=== PATIENT | male | born 1975 | race Caucasian/White ===

== ENCOUNTER 2023-05-10 12:35 | Inpatient (IN) | payer OTHER, SELFPAY ==
[2023-05-10 08:01] VITALS: BP 115/72
--- NOTE | 2023-05-10 08:22 | ED.GENMED ---
History of Present Illness
General
Chief Complaint: Abnormal Lab Value
Source: patient
Exam Limitations: none
Time Seen by Provider: 05/10/23 08:04
Nursing documentation reviewed up to this point in time: agreed with
Travel History
Have you had any contact with someone who has COVID-19?: No
Do you have any symptoms of coronavirus? Fever > 100 degrees, chills, cough, shortness of breath, sore throat, loss of taste or smell, muscle aches, or headache?: No
History of Present Illness
History of Present Illness:
pt is a 47 y/o M with h/o elevated bili probably secondary to primary sclerosing cholangitis dx 2021
was amitted here with bili of 8
and d/c with instructions to f/u with hepatology and have ERCP
pt never did those things
he has remained jaundice but says his color is usually worse in the winter
last week, he made decision to f/u with GI here, dr. calvert. had outpatient labs and was told that his bili was 20. pt was instructed to come to the hospital
he admits to drinking alcohol several nights a week
he does not take excessive tylenol
he has not had any pain, rectal bleeding
sometimes his stool is dark, sometimes light. he has h/o UC and is on mesalamine.
Past History
Past History
ED Past Medical History: Other (Ulcerative colitis, jaundice/primary sclerosing cholangitis)
ED Past Surgical History: Other (Rhinoplasty)
Social History
Tobacco: Non-smoker
Alcohol: Daily
Drug: None
Personal: Single
Living: alone
Review of Systems
Review of Systems
Allergies reviewed?: Yes
All Other Systems: Not applicable
Phy Exam
Physical Exam
Physical Exam:
GENERAL: Alert , in no apparent distress
EYE: pupils equal and reactive, SCLERAL ICTERUS
NECK: Supple
ENT: o/p clr, mmm.
CARDIAC: Regular rate and rhythm .loud 3/6 systolic murmur
LUNGS: Clear breath sounds bilaterally, no acute respiratory distress, no wheezes/rales/rhonchi
ABDOMEN: Soft, without focal tenderness, no r/g, no cvat, normal bowel sounds
NEUROLOGICAL: Alert and oriented, no focal neuro deficits
SKIN: Warm and dry, skin intact. SEVERELY ICTERIC
MUSCULOSKELETAL: No edema, well perfused. neg gatito's sign
PSYCH: Normal and appropriate interaction.
Course
Orders/Labs/Results
Orders:
Orders
05/10/23 09:08
Amylase Urgent
Complete Blood Count/With Diff Urgent
Comprehensive Metabolic Panel Urgent
LDH Urgent
Lipase Urgent
PTT Urgent
Prothrombin Time Urgent
Tylenol [Acetaminophen] Urgent
05/10/23 09:25
Abdomen & Abd Doppler US [US Abd W Abd Doppler] Urgent
Comment:
Reason For Exam: PSC, jaundice;
Abnormal Lab Results
05/10/23
09:08
WBC 4.0 L 10^3/uL
(4.8-10.8)
RBC 3.49 L 10^6/uL
(4.70-6.10)
Hgb 10.6 L g/dL
(13.0-18.0)
Hct 31.4 L %
(39.0-52.0)
RDW 16.4 H %
(11.5-14.5)
Plt Count 86 L 10^3/uL
(130-400)
Absolute Lymphs (auto) 0.8 L 10^3/uL
(1.2-3.4)
Lymphocytes % 19.5 L %
(20.5-51.1)
PT 17.9 H Sec
(11.4-14.6)
APTT 39.4 H Sec
(23.4-35.0)
Chloride 108 H mmol/L
(98-107)
Total Bilirubin 17.2 H mg/dl
(0.2-1.3)
AST 324 H U/L
(17-59)
ALT 188 H U/L
(0-50)
Alkaline Phosphatase 816 H U/L
(38-126)
Albumin 3.1 L g/dl
(3.5-5.0)
Acetaminophen < 10 L ug/ml
(10-30)
05/10/23 09:08
05/10/23 09:08
Vital Signs
Initial and Last Documented VS:
Initial Vital Signs
Temp Pulse Resp BP Pulse Ox
97.9 F 78 16 115/72 100
05/10/23 08:01 05/10/23 08:01 05/10/23 08:01 05/10/23 08:01 05/10/23 08:01
Last Documented Vital Signs
Temp Pulse Resp BP Pulse Ox
97.9 F 78 16 115/72 100
05/10/23 08:01 05/10/23 08:01 05/10/23 08:01 05/10/23 08:01 05/10/23 08:01
MDM/Problems Addressed
Differential Diagnosis Includes:
Primary sclerosing cholangitis, biliary obstruction, hepatitis
MDM/Problems Addressed:
47-year-old male with a history of presumed primary sclerosing cholangitis, sounds as if he has been lost to follow-up from 2 years ago when he was hospitalized for jaundice. Is here for elevated bilirubin sent by GI for admission. Patient is
awake and alert, has no complaints, other than his jaundice does not have any concerning exam findings. His bilirubin is 17 today with transaminitis worse than his previous. INR is normal, hemoglobin stable. I spoke with the GI nurse practitioner
who is aware of him and she recommended that he have an ultrasound with Doppler of his abdomen. He also wanted him admitted to the hospital, signed out to the hospitalist
*Critical Care Note
Total Time (30-74mins, 75-104mins- exclusive of procedures): Not Applicable
ED Attending Note
-
Portions of this chart may have been created with voice recognition software.� Occasional wrong word or��sound alike� substitutions may have occurred due to the inherent limitations of voice recognition software.
Discharge Plan
Departure
Patient Disposition: Admit
Date of Disposition: 05/10/23
Time of Disposition: 09:58
Admit to: Med/Surg
Presentation/result/management discussed w/ accepting MD/DO: Hospitalist
Condition: Fair
Covid-19: Not Applicable
Discharge Problem:
Hyperbilirubinemia
Prescriptions:
No Action
fexofenadine 180 mg Tablet
180 mg PO BID
Patient Comments:
05/10/2023, [place] 180 mg (allergy relief).
mesalamine 1.2 gram Tablet,Delayed Release (Dr/Ec)
1.2 g PO BID
MegaRed Advanced 4-in-1 700 mg-600 mg- 900 mg Capsule
1 cap PO DAILY
Patient Comments:
05/10/2023, 4-in-1 support: Heart, Brain, Eyes, Joints.
Metamucil
2 cap PO BID
Referrals:
Deidre Harmon PA-C [Family Provider] -
Interventions
Interventions:
*General Assessment Last Done: 05/10/23 08:01
ED- Fall Risk Assessment Last Done: 05/10/23 09:22
*ED COVID-19 Vaccine History Last Done: 05/10/23 08:01
[2023-05-10 08:57] VITALS: BMI 23.1
[2023-05-10 09:32] LABS: % Basophils 0.3 % (0-2); % Eosinophils 2.5 % (0-6); % Immature Granulocytes 0.3 % (0-0.5); % Lymphocytes 19.5 % (20.5-51.1); % Monocytes 4.8 % (1.7-9.3); % Neutrophils 72.6 % (42.2-75.2); Absolute Eosinophils 0.1 10^3/uL (0-0.7); Absolute Lymphocytes 0.8 10^3/uL (1.2-3.4); Absolute Monocytes 0.2 10^3/uL (0.1-0.6); Absolute Neutrophils 2.9 10^3/uL (1.4-6.5); Hematocrit 31.4 % (39.0-52.0); Hemoglobin 10.6 g/dL (13.0-18.0); Mean Corp Hgb Conc. 33.8 g/dL (33.0-37.0); Mean Corpuscular Hgb 30.4 pg (27.0-31.0); Nucleated Red Blood Cells % 0 % (-); Red Blood Cell Count 3.49 10^6/uL (4.70-6.10); Red Cell Dist. Width 16.4 % (11.5-14.5)
[2023-05-10 09:44] LABS: INR 1.47; PT 17.9 Sec (11.4-14.6)
[2023-05-10 09:45] LABS: APTT 39.4 Sec (23.4-35.0)
[2023-05-10 09:48] LABS: ALT (SGPT) 188 U/L (0-50); AST (SGOT) 324 U/L (17-59); Acetaminophen < 10 ug/ml (10-30); Albumin 3.1 g/dl (3.5-5.0); Alkaline Phosphatase 816 U/L (38-126); Amylase 61 U/L (30-110); Blood Urea Nitrogen 15 mg/dl (9-20); Calcium 8.8 mg/dl (8.4-10.2); Carbon Dioxide 23 mmol/L (22-30); Chloride 108 mmol/L (98-107); Estimated Creatinine Clearance > 125 ml/min; Glucose 80 mg/dl (70-99); LDH 180 U/L (120-246); Lipase 110 U/L (23-300); Potassium 3.9 mmol/L (3.5-5.1); Sodium 137 mmol/L (135-145); Total Bilirubin 17.2 mg/dl (0.2-1.3); Total Protein 7.1 g/dl (6.3-8.2); eGFR > 60.00
[2023-05-10 10:01] LABS: Platelet Count 86 10^3/uL (130-400)
--- NOTE | 2023-05-10 11:02 | CON.GI ---
Addendum entered and electronically signed by Audrey Campos MD 05/10/23 20:10:
I saw and examined the patient.
The PROSPECT MANAGER or PA's note was reviewed and I agree with the note.
Comment: 47-year-old male with history of ulcerative pancolitis, currently on mesalamine 1.2 g twice a day, history of PSC, history of congenital heart disease with pulmonary stenosis, ASD oversewn valvuloplasty seen in the office recently by
Marty, outpatient labs showed elevated total bilirubin and was asked to come to the emergency room. Currently denies any complaints, no abdominal pain, nausea, vomiting, heartburn, trouble swallowing, constipation, diarrhea, blood in the stool or
black stool. No NSAID use. No unintentional weight loss. Denies any itching. Reports history of intermittent jaundice couple of times a year in the last 10 years, never seen adhesive sprayer. History of ulcerative pancolitis, currently on 2.4 g of
mesalamine, no evidence of active inflammation seen on colonoscopy with biopsies in [address] Lopez. History of PSC, biliary strictures noted on prior imaging, did not require any intervention, did not follow-up with hepatology as suggested in
the past. No family history of colon cancer, liver or pancreatic cancers or inflammatory bowel disease. History of active alcohol use several times a week. Daily Tylenol use.
-Jaundice with total bilirubin of 17.2 on admission, alkaline phosphatase of 816, AST of 324 and ALT of 188.
With history of PSC, this could be related to biliary strictures as seen on previous imaging
Agree with MRI of the abdomen with MRCP
Will check alpha-fetoprotein and CA 19�9
Continue to monitor LFTs and INR
Reviewed with patient and father regarding the importance of hepatology evaluation, gave number for Dr. Sethi at [facility], suggested calling his office tomorrow and get soonest appointment and they are willing to go to [facility] as well.
Alcohol abstinence reinforced.
Will need to be checked for vitamin deficiencies, will during this hospital admission.
-Ulcerative colitis seems to be quiescent as per recent colonoscopy in 2021
Continue mesalamine 2.4 g a day
Will follow
Original Note:
Consultation
-
Date/Time Consultation Requested: 05/10/23 0900
Date/Time Consultation Performed: 05/10/23 1100
Requesting Provider: Debora Solis PA-C
Performing Provider: ROBERT Hayden, Audrey Campos MD
Reason for Consultation: increased LFT's
Medical History
Chief Complaint / HPI
Chief Complaint: jaundice/abnormal labs
History of Present Illness:
Pt is a 47 yo with hx congenital heart disease with pulm stenosis with ASD oversew and valuvoplasty at age 7 months, ulcerative colitis since 2009 and primary sclerosing cholangitis and prior biliary stricture. Pt was followed by Dr. Lopez in
2021 then recently was seen by Dr. Ferguson with some loss in follow up since 2021. In reviewing records MRI in 2021 with dominant stricture inferior to cystic duct with cholangiocarcinoma not excluded. It was unclear but pt did not proceed with
advanced testing at that time though per discharge recommended hepatology follow up to consider EUS and ERCP. He has seen Dr. Lopez after admission and recommended labs and follow up but not completed. He had recent follow up in GI office 05/07
and noted with now bili up to 20.4, AST 262, ALT 162, alk phos 758 and sent to ER for evaluation. Hepatitis panel otherwise neg with hep B immunity. He also admits to ETOH use 6-8 drinks per week and Tylenol 2 tablets daily. In review with pt and
ranjit. Pt has had jaundice intermittently for some time and seems to be worse in winter.
He currently admits to regular to loose stools and remains on mesalamine BID. He denies dysphagia, GERD, nausea, vomiting, abdominal pain, itchiness, constipation or blood in stools.
Past Medical History
Past Medical History: Other (ulcerative colitis, Primary sclerosing cholangitis, congenital heart disease with pulm stenosis, hearing loss, RBBB, iron deficiency anemia, hemorrhoids, colon polyps)
Past Surgical History: Cardiac (valvulplasty with ASD at age 7 months) and Other (rhinoplasty, cleft palate repair, liver biopsy 2009 normal )
Social History
Tobacco: Non-Smoker
Alcohol: Occasional (6-8 drinks per week arnold dominguez drinks)
Drug: None
Personal: Other (fianc�e )
Living: With Family
Employment: Employed
Family History
Family History: Other (uncle with colon CA 50's)
Allergies / Home Medications
Allergy/AdvReac Type Severity Reaction Status Date / Time
No Known Drug Allergies Allergy none Verified 05/10/23 08:04
Medication Instructions Recorded
Metamucil 2 cap PO BID Gastrointestinal Issue 05/10/23
fexofenadine 180 mg tablet 180 mg PO BID Allergies 05/10/23
mesalamine 1.2 gram tablet,delayed 1.2 g PO BID Gastrointestinal Issue 05/10/23
release
omega-3 700 mg-dha and epa 600 1 cap PO DAILY Supplement 05/10/23
mg-fish and krill oil 900 mg
capsule (MegaRed Advanced 4-in-1)
Review of Systems
-
History Source: Patient and Other (asher )
Constitutional: Reports Weight Gain (few lbs gain)
EENT: Reports No Symptoms
Respiratory: Reports No Symptoms
Abdomen/GI: Reports Diarrhea (at times )
: Reports No Symptoms
Musculoskeletal: Reports No Symptoms
Skin: Reports No Symptoms
Neurological: Reports No Symptoms
Endocrine: Reports No Symptoms
Hematologic/Lymphatic: Reports No Symptoms
Vital Signs
Temp Pulse Resp BP Pulse Ox
97.9 F 78 16 115/72 100
05/10/23 08:01 05/10/23 08:01 05/10/23 08:01 05/10/23 08:01 05/10/23 08:01
Physical Exam
Exam
General: Other (marked jaundice)
HEENT: Normocephalic, Anicteric and Moist Mucous Membranes
Respiratory: Clear
Cardiac: Regular Rhythm
GI: Soft, Non Tender and Non Distended
Musculoskeletal: No Clubbing and No Cyanosis
Skin: Warm and Dry
Neuro: Awake, Alert and AO x 3
Psych: Calm
Results
WBC 4.0 10^3/uL (4.8-10.8) L 05/10/23 09:08
Hgb 10.6 g/dL (13.0-18.0) L 05/10/23 09:08
Hct 31.4 % (39.0-52.0) L 05/10/23 09:08
MCV 90.0 fL (80.0-94.0) 05/10/23 09:08
Plt Count 86 10^3/uL (130-400) L 05/10/23 09:08
Absolute Neuts (auto) 2.9 10^3/uL (1.4-6.5) 05/10/23 09:08
PT 17.9 Sec (11.4-14.6) H 05/10/23 09:08
INR 1.47 05/10/23 09:08
APTT 39.4 Sec (23.4-35.0) H 05/10/23 09:08
Sodium 137 mmol/L (135-145) 05/10/23 09:08
Potassium 3.9 mmol/L (3.5-5.1) 05/10/23 09:08
Chloride 108 mmol/L (98-107) H 05/10/23 09:08
Carbon Dioxide 23 mmol/L (22-30) 05/10/23 09:08
BUN 15 mg/dl (9-20) 05/10/23 09:08
Creatinine 0.7 mg/dL (0.7-1.3) 05/10/23 09:08
Calcium 8.8 mg/dl (8.4-10.2) 05/10/23 09:08
Total Bilirubin 17.2 mg/dl (0.2-1.3) H 05/10/23 09:08
AST 324 U/L (17-59) H 05/10/23 09:08
ALT 188 U/L (0-50) H 05/10/23 09:08
Alkaline Phosphatase 816 U/L (38-126) H 05/10/23 09:08
Amylase 61 U/L (30-110) 05/10/23 09:08
Lipase 110 U/L (23-300) 05/10/23 09:08
Diagnostic Image Results:
09/13/2021 MR abd with and without with MRCP:
Distention of the gallbladder. Diffuse intrahepatic biliary ductal dilation with beaded appearance on MRCP images, suggesting mild to moderate diffuse intrahepatic duct strictures.
Tapered to severe narrowing of the common bile duct, just inferior to the cystic duct insertion. No MR evidence for an obstructing mass lesion. Findings most likely represent changes from primary sclerosing cholangitis. Differential consideration of
cholangiocarcinoma, felt to be less likely with no focal mass lesion identified.
Heterogeneous T2-weighted signal of the liver, also demonstrating heterogeneity on diffusion-weighted images. Findings most likely represents cirrhosis. There is also splenomegaly.
No evidence for a focal hepatic mass lesion.�
Prior GI Procedures:
EGD:
Colonoscopy: 09/2021 [facility] �� - Hemorrhoids found on perianal exam.
�� � � � � � � � � � � - One 4 mm polyp in the transverse colon, removed with
�� � � � � � � � � � � a cold snare. Resected and retrieved.
�� � � � � � � � � � � - Nodular mucosa from 18 to 20 cm proximal to the
�� � � � � � � � � � � anus. Biopsied. Tattooed.
�� � � � � � � � � � � - The entire examined colon is normal.
�� � � � � � � � � � � - The examined portion of the ileum was normal.
�� � � � � � � � � � � Biopsied.
�� � � � � � � � � � � - Two biopsies were obtained in the rectum, in the
�� � � � � � � � � � � sigmoid colon, in the descending colon, in the
�� � � � � � � � � � � transverse colon, in the ascending colon and in the
�� � � � � � � � � � � cecum.
colonoscopy: 12/2019 [facility] � � - The entire examined colon is normal. Biopsied.
�� � � � � � � � � � � - Colitis was not seen.
Assessment / Plan
-
Pt is a 47 yo with hx congenital heart disease with pulm stenosis with ASD oversew and valvuloplasty at age 7 months, ulcerative colitis since 2010 and primary sclerosing cholangitis and prior biliary stricture. Pt was followed by Dr. Lopez in
2021 then recently was seen by Dr. Ferguson with some loss in follow up since 2021. In reviewing records MRI in 2021 with dominant stricture inferior to cystic duct with cholangiocarcinoma not excluded. also noted changes of cirrhosis It was
unclear but pt did not proceed with advanced testing at that time though per discharge recommended hepatology follow up to consider EUS and ERCP. He has seen Dr. Lopez after admission and recommended labs and follow up but not completed. He had
recent follow up in GI office 05/07 and noted with now bili up to 20.4, AST 262, ALT 162, alk phos 758 and sent to ER for evaluation. Hepatitis panel otherwise neg with hep B immunity. He also admits to ETOH use 6-8 drinks per week and Tylenol 2
tablets daily. In review with pt and ranjit. Pt has had jaundice intermittently for some time and seems to be worse in winter.
- painless jaundice with elevated LFT's with hx elevation in past and prior liver biopsy
-ulcerative colitis
-primary sclerosing cholangitis
-concern for cirrhosis on prior imaging
-ETOH abuse
-daily tylenol use
other medical problems
-iron deficiency anemia
-splenomegaly
-congenital heart disease with surgical valvotomy and ASD oversew at 7 months old
-RBBB
-pulmonic stenosis
PLAN:
Etiology of LFT with concern underlying PSC with stricturing disease, cirrhosis with hx continued ETOH/daily Tylenol use, vs cholangio CA vs other
await US completed in ER
will order MR with MRCP
add AFP and Ca 19-9
cont mesalamine with hx UC
trend LFT's, INR 1.47
consider OP hepatology eval as prior evaluation with concern for small ducts PCS vs overlap syndrome vs. PBC
ETOH abstinence, avoid hepatotoxic medications including Tylenol
updated family at bedside and stressed need for continued GI follow up wit current issue and lapse in care
-
-
Thank you for consultation and allowing me to participate in the patient's care. Please call the crop production advisor GI physician during the after hours with any questions or concerns.
[2023-05-10 11:52] VITALS: BP 110/77
--- NOTE | 2023-05-10 12:24 | HPS.HSE ---
Family Physician
-
Family Physician: Deidre Harmon
Chief Complaint
-
abnormal lab
History of Present Illness
47-year-old male past medical history below who is presenting from gastroenterology office as he was found to have abnormal lab value. Patient states he was told he has a bilirubin of 20 and should come to the hospital. Of note patient was
admitted to hospital September 28 during which time he underwent extensive evaluation and was found to have a primary sclerosing cholangitis. Patient was lost to follow-up in the interim. Patient stated his jaundice is worse in the winter times and
improves during summertime. States it is usually in waves. Does admit to doing 6-8 cocktails/twisted teas/Arnold Lyon drinks in 1 week. Does take approximately 650 mg of Tylenol daily. States of regular to loose stools as he has history of UC.
Denies any significant weight loss. Denies any change in color of urine. Denies any fevers or chills. Denies any nausea or vomiting. States he had tattoo which approximately 15 years old. Denies any history of drug abuse.
Medical History
Past Medical History
Past Medical History: Reports Other
Additional Past Medical History:
primary sclerosing cholangitis�
Ulcerative Coilitis
Congenital heart disease with pulmonary stenosis status post surgery
Past Surgical History: Reports Cardiac and Other
Additional Past Surgical History:
Rhinoplasty
Cleft palate repair
Cardiac surgery
Social History
Tobacco: Non-smoker
Alcohol: Daily
Living: With Family
Employment: Employed
Family History
Family History: Other (Father-Neuropathy )
Allergies / Home Medications
Allergies reflects when Allergies were last updated in [facility].
Home Medications with original date entered in [facility]
Allergy/Medication List:
Allergies
Allergy/AdvReac Type Severity Reaction Status Date / Time
No Known Drug Allergies Allergy none Verified 05/10/23 08:04
Home Medications
Metamucil 2 cap PO BID Gastrointestinal Issue 05/10/23
fexofenadine 180 mg tablet 180 mg PO BID Allergies 05/10/23
mesalamine 1.2 gram tablet,delayed release 1.2 g PO BID Gastrointestinal Issue 05/10/23
omega-3 700 mg-dha and epa 600 mg-fish and krill oil 900 mg capsule ([employer] Advanced 4-in-1) 1 cap PO DAILY Supplement 05/10/23
Review of Systems
-
History Source: Patient and Family
A 12 point ROS was completed and negative except as noted: Yes
Physical Exam
Vital Signs
Vital Signs
Temp Pulse Resp BP Pulse Ox
97.9 F 74 18 110/77 99
05/10/23 08:01 05/10/23 11:52 05/10/23 11:52 05/10/23 11:52 05/10/23 11:52
Physical Exam
General: Well Developed, Well Nourished and No Apparent Distress
HEENT: NormoCephalic, Moist mucous membranes, Atraumatic and Other (Icteric sclerae)
Respiratory: Clear
Cardiac: S1/S2, Regular Rhythm and Murmur; No Rub
GI: Soft, Non Tender, Non Distended and Normal Bowel Sounds; No Organomegaly
Rectal: Deferred by Provider
Musculoskeletal: No Clubbing, No Cyanosis and No Edema
Skin: Warm and Jaundice; No Rash
Neuro: Awake, Oriented, AO x 3, No Motor Deficits and Nonfocal/grossly intact
Psych: Calm
Laboratory Results
-
05/10/23 09:08
05/10/23 09:08
Laboratory Results
PT 17.9 Sec (11.4-14.6) H 05/10/23 09:08
INR 1.47 05/10/23 09:08
APTT 39.4 Sec (23.4-35.0) H 05/10/23 09:08
Total Bilirubin 17.2 mg/dl (0.2-1.3) H 05/10/23 09:08
AST 324 U/L (17-59) H 05/10/23 09:08
ALT 188 U/L (0-50) H 05/10/23 09:08
Alkaline Phosphatase 816 U/L (38-126) H 05/10/23 09:08
Lipase 110 U/L (23-300) 05/10/23 09:08
Impression/Plan
-
#Painless jaundice with transaminitis
#History of liver biopsy
#Primary sclerosing cholangitis
Abdominal ultrasound noted with changes consistent with PSC.
MRI of the abdomen ordered by gastroenterology
As outpatient workup done in the past for hepatitis per gastroenterology correspondence
N.p.o. for now as plan for MRCP
Gentle IV fluids
Avoid Tylenol
Counseled on alcohol cessation
If with confusion check ammonia and may need to start lactulose
#Ulcerative colitis
Continue mesalamine
#Alcohol abuse
MSAS protocol
low likelihood of severe withdrawal
#Pancytopenia likely secondary alcohol abuse leading to suppression versus PSC
Check anemia panel
Trend hemoglobin and transfuse as needed
Platelets adequate no acute need for transfusion
DVT ppx-scds and encourage ambulation
[2023-05-10 12:30] VITALS: BP 117/69
[2023-05-10 13:00] VITALS: BP 111/70
[2023-05-10 14:03] LABS: Iron 68 ug/dl (49-181)
[2023-05-10 14:13] LABS: Percent Saturation 24 % (20-50); Total Iron Binding Capacity 273 ug/dl (261-462)
[2023-05-10 15:18] VITALS: BP 101/63
[2023-05-10] MEDS: LR 1000 IV (16:57)
[2023-05-10] MEDS: ASACOL, DELZICOL DR 1200 MG PO (17:02)
[2023-05-10 17:53] LABS: Folate 18.3 ng/ml (2.76-20); Vitamin B12 > 1000 pg/ml (239-931)
[2023-05-10 19:21] LABS: AFP Male/Tumor Marker 4.84 ng/ml
[2023-05-10] MEDS: METAMUCIL, KONSYL 2 PACKET PO (20:28)
[2023-05-10 23:44] VITALS: BP 106/52
[2023-05-11] MEDS: LR 1000 IV (04:59)
[2023-05-11 06:05] LABS: % Eosinophils 3.2 % (0-6); % Immature Granulocytes 0.3 % (0-0.5); % Lymphocytes 27.1 % (20.5-51.1); % Monocytes 7.4 % (1.7-9.3); Absolute Eosinophils 0.1 10^3/uL (0-0.7); Absolute Lymphocytes 0.9 10^3/uL (1.2-3.4); Absolute Monocytes 0.3 10^3/uL (0.1-0.6); Absolute Neutrophils 2.1 10^3/uL (1.4-6.5); Hematocrit 30.8 % (39.0-52.0); Hemoglobin 10.4 g/dL (13.0-18.0); Mean Corp Hgb Conc. 33.8 g/dL (33.0-37.0); Mean Corpuscular Hgb 30.5 pg (27.0-31.0); Mean Corpuscular Volume 90.3 fL (80.0-94.0); Nucleated Red Blood Cells % 0 % (-); Platelet Count 79 10^3/uL (130-400); Red Blood Cell Count 3.41 10^6/uL (4.70-6.10); Red Cell Dist. Width 16.2 % (11.5-14.5); White Blood Cell Count 3.4 10^3/uL (4.8-10.8)
[2023-05-11 06:29] LABS: ALT (SGPT) 155 U/L (0-50); AST (SGOT) 240 U/L (17-59); Albumin 2.5 g/dl (3.5-5.0); Alkaline Phosphatase 622 U/L (38-126); Blood Urea Nitrogen 14 mg/dl (9-20); Calcium 8.6 mg/dl (8.4-10.2); Carbon Dioxide 23 mmol/L (22-30); Chloride 105 mmol/L (98-107); Estimated Creatinine Clearance > 125 ml/min; Glucose 86 mg/dl (70-99); Potassium 3.6 mmol/L (3.5-5.1); Sodium 139 mmol/L (135-145); Total Bilirubin 13.4 mg/dl (0.2-1.3); Total Protein 5.9 g/dl (6.3-8.2); eGFR > 60.00
[2023-05-11] MEDS: CLARITIN 10 MG PO (07:23)
[2023-05-11] MEDS: ASACOL, DELZICOL DR 1200 MG PO ×2 (07:23→17:19)
[2023-05-11] MEDS: METAMUCIL, KONSYL 2 PACKET PO (07:23)
[2023-05-11 07:39] VITALS: BP 95/60
--- NOTE | 2023-05-11 10:58 | PN.CDI ---
CDI
- -
CDI:
Physician Documentation Request
Admit Date: 05/10/23 12:35
Dear Doctor Kiki,
Please review the following and provide your response in the progress notes.
Clinical Indicators:
The diagnosis of severe portal hypertension was included in the signed 05/10 MRI abdomen
- 05/10 Abdomen MRI 'The right and left portal veins, main portal vein, superior mesenteric vein, and splenic vein are severely distended consistent with severe portal hypertension'
- 'There is distention of the intrahepatic inferior vena cava, right, left, middle hepatic veins'
Please indicate in your progress notes if you are in agreement that the above diagnosis is valid for this patient:
____ - Portal hypertension is a valid diagnosis (Please include it in your progress notes)
____ - Portal hypertension is not a valid diagnosis for this patient
____ - Portal hypertension is not yet confirmed but remains a suspected condition
____ - Other
Use of terms such as suspected, likely, concern for, or probable are acceptable for a diagnosis that is being evaluated, monitored or treated as if it exists and can be coded in the inpatient setting, when documented at the time of discharge.
Thank you,
Greg Goldsmith RN
CDI Specialist
Please use your independent medical judgment in providing your response.
--- NOTE | 2023-05-11 11:28 | W.PN.HOSP.TC ---
Today's Communication/Plan
-
GI recs
dc IVF
Assessment / Plan
Assessment / Plan
#Painless jaundice with transaminitis 2/2 biliary stricture in setting of PSC
#History of liver biopsy
#Primary sclerosing cholangitis
#Portal hypertension
Abdominal ultrasound noted with changes consistent with PSC.
MRI of the abdomen SEVERE PRIMARY SCLEROSING CHOLANGITIS with innumerable short segment strictures throughout the intrahepatic bile ducts which is not definitively changed.
As outpatient workup done in the past for hepatitis per gastroenterology correspondence
Tolerating diet
DC IV fluids
Avoid Tylenol
Counseled on alcohol cessation
If with confusion check ammonia and may need to start lactulose
Pt with information to call Dr. Eubanks/f/u with construction project coordinator at [facility]
AFP at 4.84
CA 19-9 pending
T-bili improving
Unclear if plan to start Ursodiol-will defer to GI
#Ulcerative colitis
MRCP with mild pancolitis. Portal colopathy is an alternative diagnostic possibility given the degree of portal hypertension.
Continue mesalamine
#Alcohol abuse
MSAS protocol
low likelihood of severe withdrawal
#Pancytopenia likely secondary alcohol abuse leading to suppression versus PSC
Check anemia panel-iron stores an b12 and folate wnl.
Trend hemoglobin and transfuse as needed. Hgb at 10.4
Platelets adequate no acute need for transfusion
DVT ppx-scds and encourage ambulation
Dispo-GI recs. Possible home
Anticipated Discharge: Today
Subjective/Interval History
-
Date of Service: May 11, 2023
Denies any abdominal pain nausea vomiting
Tolerating diet
Objective Data
-
Labs:
Laboratory Results
05/11/23
05:35
WBC 3.4 L
Hgb 10.4 L
Hct 30.8 L
Plt Count 79 L
Sodium 139
Potassium 3.6
Chloride 105
Carbon Dioxide 23
BUN 14
Creatinine 0.7
Glucose 86
Calcium 8.6
Total Bilirubin 13.4 H
AST 240 H
ALT 155 H
Alkaline Phosphatase 622 H
Vital Signs:
Vital Signs
Temp Pulse Resp BP Pulse Ox
97.7 F 72 16 95/60 100
05/11/23 07:39 05/11/23 07:39 05/11/23 07:39 05/11/23 07:39 05/11/23 07:39
I&O
05/10/23 05/11/23 05/12/23
06:59 06:59 06:59
Intake Total 480 / 480
Balance 480 / 480
Physical Exam
-
General: Well Developed and No Apparent Distress
HEENT: Normocephalic, Atraumatic, Moist Mucous Membranes and Other (Icteric sclerae)
Respiratory: Clear to Auscultation
Cardiac: Regular Rhythm and S1/S2; Negative Murmur, Rub or Gallop
GI: Soft, Nontender, Nondistended and Normal Bowel Sounds; Negative Organomegaly
Rectal: Deferred by Provider
Musculoskeletal: No Clubbing, No Cyanosis and No Edema
Skin: Warm and Jaundice; Negative Rash
Neuro: Awake, Alert, Oriented, AO x 3, No Motor Deficits and Nonfocal/Grossly Intact
Psych: Calm
[2023-05-11 15:39] VITALS: BP 119/71
--- NOTE | 2023-05-11 16:46 | CM ---
met with patient at bedside.patient lives with his mom in house with no sonia,his bed and bath is on the second level.he ambulated I and is I with his adl's.his pcp is [facility] and he uses [facility] in [place] for meds.patient is
adm with elevated bilirubin.he has a pnacretic mass.m ovf,gi following patient.
Plan is to dischrge home with no needs.
--- NOTE | 2023-05-11 17:14 | W.DCSUMMARY ---
Discharge Summary
Discharge Data
Date of Admission: 05/10/23
Date of Discharge: 05/11/23
-
Pending Results: No
Hospital Course
47-year-old male past medical history of ulcerative colitis, alcohol abuse, pancytopenia, primary sclerosing cholangitis who is presented with abnormal lab value. Patient was seen by barrel maker outpatient was found to have elevated
bilirubin of 20. Patient was told to come into the ER. Patient underwent ultrasound of the abdomen which showed changes consistent with PSC. Patient underwent MRI of the abdomen which showed SEVERE PRIMARY SCLEROSING CHOLANGITIS with innumerable
short segment strictures throughout the intrahepatic bile ducts which is not definitively changed. NO MRI evidence for new biliary obstruction or interval increase in biliary dilatation compared with the prior exam performed 09/13/2021. Mild
hepatic cirrhosis and mild hepatomegaly. SEVERE PORTAL HYPERTENSION with SEVERE SPLENOMEGALY. Moderate right upper quadrant hector hepatis, portacaval, and retroperitoneal lymphadenopathy which has mildly increased since 09/13/2021. Mild pancolitis
which is likely CHRONIC ULCERATIVE COLITIS. Portal colopathy is an alternative diagnostic possibility given the degree of portal hypertension. Minimal ascites which appears new from 09/13/2021. Patient bilirubin trended down with improvement in
transaminitis. Patient was tolerating diet. Patient did not have any complaint of pruritus. Patient was offered to be started on questran and ursodiol which patient refused. Patient was recommended follow-up outpatient with book sorter as soon
as possible. Patient is a oriented appointment with Dr. Eubanks book sorter downtown [facility].
Discharge Plan
-
Patient Disposition: Home (Routine Discharge)
Discharge Diagnosis/Procedures: Painless jaundice 2/2 biliary stricture in setting of Primary sclerosing cholangitis
Condition: Fair
Diet: Low Fat
Activity: With assistance and As tolerated
Driving Restrictions: As prior to admission
Blood Work: cmp in 1 week via primary doctor.
Activity Restrictions/Additional Instructions:
Recommend to follow up with Dr Sethi book sorter at [facility].
Instructions: Alcohol Use Disorder (DC)
Referrals:
Deidre Harmon PA-C [Family Provider] - in less than 1 week
Luis Ferguson MD [Active] - in one to two weeks
Prescriptions:
Continued
mesalamine 1.2 gram Tablet,Delayed Release (Dr/Ec)
1.2 g PO BID
MegaRed Advanced 4-in-1 700 mg-600 mg- 900 mg Capsule
1 cap PO DAILY
Patient Comments:
05/10/2023, 4-in-1 support: Heart, Brain, Eyes, Joints.
Metamucil
2 cap PO BID
Changed
fexofenadine 180 mg Tablet
180 mg PO DAILY Qty: 0 0RF
Patient Comments:
05/10/2023, Mónica Holt 180 mg (allergy relief).
Discharge Orders:
Discharge Patient (As Directed); Ordered 05/11/23
Ordered By: Juliano Swanson
--- NOTE | 2023-05-11 17:21 | W.PN.GI.CBS2 ---
Today's Communication / Plan
-
Ok to DC home and f/u with Dr. Sethi (has appt in August), and Dr. Ferguson
ETOH abstinence
Assessment / Plan
-
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 Pt was followed by Dr. Lopez in
2021 then recently was seen by Dr. Ferguson with some loss in follow up since 2021. In reviewing records MRI in 2021 with dominant stricture inferior to cystic duct with cholangiocarcinoma not excluded. also noted changes of cirrhosis It was
unclear but pt did not proceed with advanced testing at that time though per discharge recommended hepatology follow up to consider EUS and ERCP. He has seen Dr. Lopez after admission and recommended labs and follow up but not completed. He had
recent follow up in GI office 05/07 and noted with now bili up to 20.4, AST 262, ALT 162, alk phos 758 and sent to ER for evaluation. Hepatitis panel otherwise neg with hep B immunity. He also admits to ETOH use 6-8 drinks per week and Tylenol 2
tablets daily. In review with pt and ranjit. Pt has had jaundice intermittently for some time and seems to be worse in winter.
- painless jaundice with elevated LFT's with hx elevation in past and prior liver biopsy
-ulcerative colitis
-primary sclerosing cholangitis
-concern for cirrhosis on prior imaging
-ETOH abuse
-daily tylenol use
other medical problems
-iron deficiency anemia
-splenomegaly
-congenital heart disease with surgical valvotomy and ASD oversew at 7 months old
-RBBB
-pulmonic stenosis
PLAN:1. Painless jaundice secondary to chronic strictures from PSC no evidence of cholangiocarcinoma noted on MRI, CA 19-9 pending. He currently has no pruritus offered to start ursodiol daily and Questran as needed but he wants to hold off for
now as he has no symptoms and wants to await input from Dr. Sethi. No signs of cholangitis currently.
2 has evidence of cirrhosis most likely related to alcohol and PSC. Alpha-fetoprotein level was normal currently has no signs of decompensation other than minimal lower extremity edema and minimal ascites has appointment with Dr. Sethi in August
3 UC in remission continue mesalamine
4 given underlying PSC explained to patient increased risk of colon and cholangiocarcinoma and reinforced importance of compliance with annual colonoscopy and MRIs
Subjective
Subjective
Date of Service: May 11, 2023
He feels good denies any abdominal pain, no pruritus, no fevers or chills. MRI with MRCP results noted no evidence of cholangiocarcinoma he has multiple chronic strictures from PSC but also has evidence of hepatosplenomegaly and underlying
cirrhosis with minimal ascites.
Objective
Data Reviewed
Laboratory Data:
Laboratory Results
05/11/23 05:35
05/11/23 05:35
Laboratory Results
PT 17.9 Sec (11.4-14.6) H 05/10/23 09:08
INR 1.47 05/10/23 09:08
APTT 39.4 Sec (23.4-35.0) H 05/10/23 09:08
Total Bilirubin 13.4 mg/dl (0.2-1.3) H 05/11/23 05:35
AST 240 U/L (17-59) H 05/11/23 05:35
ALT 155 U/L (0-50) H 05/11/23 05:35
Alkaline Phosphatase 622 U/L (38-126) H 05/11/23 05:35
Amylase 61 U/L (30-110) 05/10/23 09:08
Lipase 110 U/L (23-300) 05/10/23 09:08
Vital Signs and I&O:
Vital Signs
Temp Pulse Resp BP Pulse Ox
97.7 F 74 17 119/71 99
05/11/23 15:39 05/11/23 15:39 05/11/23 15:39 05/11/23 15:39 05/11/23 15:39
I&O
05/10/23 05/11/23 05/12/23
06:59 06:59 06:59
Intake Total 480 / 480
Balance 480 / 480
Physical Exam
Physical Exam
Cardiology: Normal Sinus Rhythm
Pulmonary: Clear
GI: Soft, Distended (mildly distended), Non Tender and Normal Bowel Sounds
[2023-05-13 04:12] LABS: CA 19-9 4 U/mL (<=35)
== END 2023-05-11 20:48 | disposition home or self-care (01) | DRG 444 ==
LOC: 3 WEST ACU 12:35
PROVIDERS: Physician Assistant; ADMITTING PHYSICIAN Hospitalist; EMERGENCY PHYSICIAN Emergency Medicine; FAMILY PHYSICIAN Physician Assistant Medical; OTHER PHYSICIAN Internal Medicine Gastroenterology
DX: K83.01 Primary sclerosing cholangitis (principal); K83.1 Obstruction of bile duct; K76.6 Portal hypertension; K51.00 Ulcerative (chronic) pancolitis without complications; D61.818 Other pancytopenia; R59.0 Localized enlarged lymph nodes; D50.9 Iron deficiency anemia, unspecified; I45.10 Unspecified right bundle-branch block; H91.90 Unspecified hearing loss, unspecified ear; K64.9 Unspecified hemorrhoids; F10.10 Alcohol abuse, uncomplicated; R16.2 Hepatomegaly with splenomegaly, not elsewhere classified; K74.60 Unspecified cirrhosis of liver; Z86.010 Personal history of colon polyps; Z87.74 Personal history of (corrected) congenital malformations of heart and circulatory system; Z80.0 Family history of malignant neoplasm of digestive organs
CPT/HCPCS: 74183; 76700; 80053; 80143; 82105; 82150; 82607; 82728; 82746; 83540; 83550; 83615; 83690; 85025; 85610; 85730; 86301; 93975; 99285

== ENCOUNTER 2023-06-19 12:16 | Inpatient (IN) | payer OTHER, SELFPAY ==
[2023-06-19] VITALS (9 sets, daily range): BP systolic 96–134; BP diastolic 37–77; BMI 24.8; BMI 23.6
--- NOTE | 2023-06-19 09:05 | ED.GENMED ---
History of Present Illness
General
Chief Complaint: Abnormal Lab Value
Source: patient
Exam Limitations: none
Time Seen by Provider: 06/19/23 08:53
Travel History
Have you had any contact with someone who has COVID-19?: No
Do you have any symptoms of coronavirus? Fever > 100 degrees, chills, cough, shortness of breath, sore throat, loss of taste or smell, muscle aches, or headache?: No
History of Present Illness
History of Present Illness:
See MDM
Past History
Past History
ED Past Medical History: Other (Ulcerative colitis, jaundice/primary sclerosing cholangitis)
ED Past Surgical History: Other (Rhinoplasty)
Social History
Tobacco: Non-smoker
Alcohol: Daily
Drug: None
Personal: Single
Living: alone
Phy Exam
Physical Exam
Physical Exam:
See MDM
Course
Orders/Labs/Results
Orders:
Orders
06/19/23 08:52
IV Insert/Care/Rem.- Treatment PRN
06/19/23 09:08
Complete Blood Count/With Diff Urgent
Comprehensive Metabolic Panel Urgent
Lipase Urgent
NT-proBNP Urgent
06/19/23 09:09
Prothrombin Time Urgent
06/19/23 09:46
Electrocardiogram (*1) Urgent
Reason for Study: Chest Pain
EKG- Treatment ONCE
Abnormal Lab Results
06/19/23 06/19/23
09:08 09:09
RBC 3.47 L 10^6/uL
(4.70-6.10)
Hgb 10.5 L g/dL
(13.0-18.0)
Hct 31.4 L %
(39.0-52.0)
RDW 18.1 H %
(11.5-14.5)
Plt Count 83 L 10^3/uL
(130-400)
Abs Immat Gran (auto) 0.1 H 10^3/uL
(0-0.05)
Absolute Lymphs (auto) 0.8 L 10^3/uL
(1.2-3.4)
Immature Gran % 0.9 H %
(0-0.5)
Neutrophils % 80.2 H %
(42.2-75.2)
Lymphocytes % 11.8 L %
(20.5-51.1)
PT 18.4 H Sec
(11.4-14.6)
Chloride 109 H mmol/L
(98-107)
BUN 24 H mg/dl
(9-20)
Total Bilirubin 28.6 H* mg/dl
(0.2-1.3)
AST 270 H U/L
(17-59)
ALT 181 H U/L
(0-50)
Alkaline Phosphatase 786 H U/L
(38-126)
Albumin 2.6 L g/dl
(3.5-5.0)
06/19/23 09:08
06/19/23 09:08
Vital Signs
Initial and Last Documented VS:
Initial Vital Signs
Temp Pulse Resp BP Pulse Ox
97.7 F 82 20 125/77 100
06/19/23 08:14 06/19/23 08:14 06/19/23 08:14 06/19/23 08:14 06/19/23 08:14
Last Documented Vital Signs
Temp Pulse Resp BP Pulse Ox
97.7 F 72 22 109/64 100
06/19/23 08:14 06/19/23 10:00 06/19/23 10:00 06/19/23 10:00 06/19/23 10:00
MDM/Problems Addressed
Differential Diagnosis Includes:
HPI and MDM Narrative:
47-year-old male presenting to the emergency department with increasing bilirubin. Patient was recently admitted last month for similar issues. He was seen by GI and it was believed that his symptoms were related to primary sclerosing cholangitis.
At that time, he did have an MRCP. The plan is outpatient follow-up Aakash to see the senior procurement specialist. This has not happened yet. Patient now noticing worsening swelling in both of his legs. His primary care doctor wants to get a
echocardiogram. I did discuss with patient this could be related to ascites and liver failure. Patient has noted abdominal bloating. I discussed with patient this is likely fluid
Will repeat blood work and discussed case with GI
Physical exam
General: Well appearing and non-toxic
HEENT: protecting airway
Neck: appears supple
CV: No evidence of cyanosis
Resp: No accessory muscle use
Abd: Distended and nontender
Extremities: +2 pitting edema bilateral lower extremities
Neuro: alert
Psych: Normal affect
Skin: Significant jaundice throughout
Problems Addressed including Acute and Chronic Conditions affecting care:
1. Acute liver failure
Acuity: acute
Prognosis: unstable
Details: Patient stopped drinking alcohol over a month ago. This is likely in the setting of worsening primary sclerosing chondritis. Will repeat blood work and discussed case with GI
2. Leg edema
Acuity: acute
Prognosis: unstable
Details: Likely in the setting of liver failure but will obtain BNP
Updates
BNP 247. Leg edema likely related to ascites. Albumin low at 2.6
GI made aware
Differential Diagnosis (but not limited to): Liver failure, congestive heart failure
Testing considered: Repeat MRCP
Drug therapy (if applicable): OTC meds, please see d/c instruction regarding Rx drugs
Amount and/or Complexity of Data Reviewed
Clinical info obtained from: Patient
External data reviewed: recent admission for primary sclerosing cholangitis. No stents were performed
Labs I independently reviewed (but not limited to): Total bilirubin 28.6
Radiology: N/A
Pulse Ox: not hypoxic
EKG independently reviewed: Sinus rhythm, left axis, no STEMI
Ammonium Sulfate Operator: N/A
Critical Care: N/A
Risk of Complication:
Social Determinants of health: Good social support
Discussed with other providers: GI, hospitalist
Escalation of Care includes Admit/Obs: Given the rising bilirubin with new leg edema, will admit
Occasional wrong word or 'sound a like' substitutions may have occurred due to the inherent limitations of voice recognition software. Read the chart carefully and recognize, using context, where substitutions have occurred.
*Critical Care Note
Total Time (30-74mins, 75-104mins- exclusive of procedures): Not Applicable
ED Attending Note
-
Portions of this chart may have been created with voice recognition software.� Occasional wrong word or��sound alike� substitutions may have occurred due to the inherent limitations of voice recognition software.
Discharge Plan
Departure
Patient Disposition: Admit
Date of Disposition: 06/19/23
Time of Disposition: 10:20
Admit to: Med/Surg
Presentation/result/management discussed w/ accepting MD/DO: Hospitalist
Discharge Problem:
PSC (primary sclerosing cholangitis), Leg edema
Prescriptions:
No Action
mesalamine 1.2 gram Tablet,Delayed Release (Dr/Ec)
1.2 g PO BID
MegaRed Advanced 4-in-1 700 mg-600 mg- 900 mg Capsule
1 cap PO DAILY
Patient Comments:
06/19/2023, 4-in-1 support: Heart, Brain, Eyes, Joints.
Metamucil
2 cap PO BID
fexofenadine 180 mg Tablet
180 mg PO DAILY Qty: 0 0RF
Patient Comments:
06/19/2023, Mónica Holt 180 mg (allergy relief).
Referrals:
Deidre Harmon PA-C [Family Provider] -
Interventions
Interventions:
*Risk Screen - Suicide Last Done: 06/19/23 08:14
*General Assessment Last Done: 06/19/23 08:14
*Neglect/Abuse Screening Last Done: 06/19/23 08:14
ED- Fall Risk Assessment Last Done: 06/19/23 09:11
*ED COVID-19 Vaccine History Last Done: 06/19/23 09:10
--- NOTE | 2023-06-19 09:08 | EDRN ---
Dr. Graff in room w/ pt at this time.
[2023-06-19 09:28] LABS: % Basophils 0.1 % (0-2); % Eosinophils 1.2 % (0-6); % Immature Granulocytes 0.9 % (0-0.5); % Lymphocytes 11.8 % (20.5-51.1); % Monocytes 5.8 % (1.7-9.3); % Neutrophils 80.2 % (42.2-75.2); Absolute Eosinophils 0.1 10^3/uL (0-0.7); Absolute Immature Granulocytes 0.1 10^3/uL (0-0.05); Absolute Lymphocytes 0.8 10^3/uL (1.2-3.4); Absolute Monocytes 0.4 10^3/uL (0.1-0.6); Absolute Neutrophils 5.5 10^3/uL (1.4-6.5); Hematocrit 31.4 % (39.0-52.0); Hemoglobin 10.5 g/dL (13.0-18.0); Mean Corp Hgb Conc. 33.4 g/dL (33.0-37.0); Mean Corpuscular Hgb 30.3 pg (27.0-31.0); Mean Corpuscular Volume 90.5 fL (80.0-94.0); Nucleated Red Blood Cells % 0 % (-); Platelet Count 83 10^3/uL (130-400); Red Blood Cell Count 3.47 10^6/uL (4.70-6.10); Red Cell Dist. Width 18.1 % (11.5-14.5); White Blood Cell Count 6.8 10^3/uL (4.8-10.8)
[2023-06-19 09:36] LABS: INR 1.55; PT 18.4 Sec (11.4-14.6)
[2023-06-19 09:54] LABS: ALT (SGPT) 181 U/L (0-50); AST (SGOT) 270 U/L (17-59); Albumin 2.6 g/dl (3.5-5.0); Alkaline Phosphatase 786 U/L (38-126); Blood Urea Nitrogen 24 mg/dl (9-20); Calcium 8.7 mg/dl (8.4-10.2); Carbon Dioxide 24 mmol/L (22-30); Chloride 109 mmol/L (98-107); Estimated Creatinine Clearance 64 ml/min; Glucose 94 mg/dl (70-99); Lipase 118 U/L (23-300); NT-proBNP 247 pg/ml; Potassium 3.7 mmol/L (3.5-5.1); Sodium 138 mmol/L (135-145); Total Protein 6.6 g/dl (6.3-8.2); eGFR > 60.00
[2023-06-19 10:09] LABS: Total Bilirubin 28.6 mg/dl (0.2-1.3)
--- NOTE | 2023-06-19 10:30 | EDRN ---
Dr. Graff in room w/pt at this time.
--- NOTE | 2023-06-19 10:33 | EDRN ---
Pt asked to eat and Dr. Graff said pt can eat. Pt was given a boxed lunch at this time. Pt is awaiting hospitalist and admission orders.
--- NOTE | 2023-06-19 12:01 | HPS.HSE ---
Family Physician
-
Family Physician: Deidre Harmon
Chief Complaint
-
abnormal labs
History of Present Illness
47-year-old male past medical history of as below who is presenting from primary doctor's office with abnormal labs and lower extremity swelling. Patient states lower extremity swelling which is ongoing. States is intermittent in nature. Denies
asymmetric swelling. Denies leg pain. Denies any abdominal distention. Denies any chest pain or shortness of breath. States he was recently seen by gastroenterology as outpatient. Denies any fevers or chills at home. Did not notice any further
change in color of stool or urine.
Medical History
Past Medical History
Past Medical History: Reports Other
Additional Past Medical History:
Primary sclerosing cholangitis�
Ulcerative Coilitis
Congenital heart disease with pulmonary stenosis status post surgery
Past Surgical History: Reports Other
Additional Past Surgical History:
Rhinoplasty
Cleft palate repair
Cardiac surgery
Social History
Tobacco: Non-smoker
Alcohol: Former
Family History
Family History: Not pertinent
Allergies / Home Medications
Allergies reflects when Allergies were last updated in [employer].
Home Medications with original date entered in [employer]
Allergy/Medication List:
Allergies
Allergy/AdvReac Type Severity Reaction Status Date / Time
No Known Drug Allergies Allergy none Verified 06/19/23 08:14
Home Medications
Metamucil 2 cap PO BID Gastrointestinal Issue 05/10/23
mesalamine 1.2 gram tablet,delayed release 1.2 g PO BID Gastrointestinal Issue 05/10/23
omega-3 700 mg-dha and epa 600 mg-fish and krill oil 900 mg capsule (Zipwhip Advanced 4-in-1) 1 cap PO DAILY Supplement 05/10/23
fexofenadine 180 mg tablet 180 mg PO DAILY Allergies #0 tabs 05/11/23
Review of Systems
-
History Source: Patient
A 12 point ROS was completed and negative except as noted: Yes
Physical Exam
Vital Signs
Vital Signs
Temp Pulse Resp BP Pulse Ox
97.7 F 74 18 107/65 100
06/19/23 08:14 06/19/23 11:15 06/19/23 11:15 06/19/23 11:11 06/19/23 11:15
Physical Exam
General: Well Developed, Well Nourished and No Apparent Distress
HEENT: NormoCephalic, Moist mucous membranes, Atraumatic and Other (Icteric sclerae)
Respiratory: Clear
Cardiac: S1/S2, Regular Rhythm and Murmur; No Rub
GI: Soft, Non Tender and Normal Bowel Sounds; No Organomegaly
Rectal: Deferred by Provider
Musculoskeletal: No Clubbing, No Cyanosis, Edema, Left Lower Extremity and Edema, Right Lower Extremity
Skin: Warm and Jaundice; No Rash
Neuro: Awake, Oriented, AO x 3, No Motor Deficits and Nonfocal/grossly intact
Psych: Calm
Laboratory Results
-
06/19/23 09:08
06/19/23 09:08
Laboratory Results
PT 18.4 Sec (11.4-14.6) H 06/19/23 09:09
INR 1.55 06/19/23 09:09
Total Bilirubin 28.6 mg/dl (0.2-1.3) H* 06/19/23 09:08
AST 270 U/L (17-59) H 06/19/23 09:08
ALT 181 U/L (0-50) H 06/19/23 09:08
Alkaline Phosphatase 786 U/L (38-126) H 06/19/23 09:08
Lipase 118 U/L (23-300) 06/19/23 09:08
Data Reviewed
-
Lab Data: Labs Reviewed by me, Discussed with Patient and Discussed with Family
Impression/Plan
-
#Painless jaundice with elevated bilirubin, alk phos and ALT/AST likely 2/2 PSC vs. hx of alcohol abuse
#Primary sclerosing cholangitis with worsening of bilirubin 2/2 strictures
#History of liver biopsy
Check abdominal ultrasound to assess for ascites
Will defer MRI of the abdomen by gastroenterology
May require EUS/ERCP
Tolerated diet
Check direct bili and GGT
Avoid Tylenol
AFP was checked recently wnl.
May need to start Ursodiol
If with confusion check ammonia and may need to start lactulose
In setting of swelling-hold IVF. Tolerating po diet.
GI consultation requested
#LE edema likely 2/2 ?liver cirrhosis vs. low likelihood of CHF new onset.
probnp noted
Check LE doppler
Check abdominal ultrasound to assess for ascites
ChecK ECHO
#Ulcerative colitis
Continue mesalamine
#Alcohol abuse
MSAS protocol
low likelihood of severe withdrawal
#Pancytopenia likely secondary alcohol abuse leading to suppression versus PSC
Trend hemoglobin and transfuse as needed
Platelets adequate no acute need for transfusion
#Hx of congenital Heart disease with pulmonary stenosis wtih ASD s/p repair
DVT ppx-scds and encourage ambulation
I spent a total of 78 minutes with the patient or on the floor. More than 50% of this time involved counseling and coordination of care.
--- NOTE | 2023-06-19 12:34 | CON.GI ---
Addendum entered and electronically signed by Tran Cano DO 06/19/23 15:20:
Patient seen and examined independently of ROBERT. I agree with her note with my additions below
Jacob is a 47-year-old male with congenital heart disease with pulmonary stenosis and ASD treated at 7 months, chronic torres ulcerative colitis in clinical remission on chronic 2 mesalamine pills daily, diagnosed with primary sclerosing cholangitis
around age 19 according to his mother who is at the bedside who was sent for outpatient labs showing a bilirubin of 28, GGT 116, ALT 181, AST 270, alkaline phosphatase 76, albumin 2.6, creatinine 1.3. He has no abdominal pain. His weight has been
stable at 140. He denies any GI bleeding, steatorrhea. He has never had any GI bleeding other than small amounts of bright red blood per rectum. He was unaware of having significant liver disease. According to his girlfriend and mother he has
had intermittent jaundice over the past couple of years but over the past few months it has become persistent and significant. He is otherwise asymptomatic.
Patient has never been under the care of a finishing supervisor plastic sheets but has been followed by Dr. Lopez for over 2 decades for his ulcerative colitis. He is not getting annual colonoscopies with his last colonoscopy in 2021. He is unaware of having cirrhosis.
Not heavy drinker, just social. Does not take any high doses of Tylenol or NSAIDs. The only medications he takes is Marlen, mesalamine. Denies any herbal supplements. Uncle with colon cancer otherwise no family history of malignancy and no liver
disease.
# Painless jaundice -according to his mother known diagnosis of PSC at age 19. Not under the care of hepatology.
--Based on imaging and labs highly concerning for cirrhosis with significant portal hypertension and varicosities on imaging.
--MELD 3.0 29 on 06/19/2023
--Currently discussions with Dr. Sethi to see if we can get him in on this Sunday instead of waiting until August. Had a long discussion over 30 minutes with the patient, his mother and girlfriend about the severity of his disease. He understands that
he has significant liver disease and will likely need a transplant. We talked about being compliant with labs, appointments in order to successfully go through transplant evaluation. They reiterated the plan and understand the severity.
-- Patient does have insurance and a good social situation with support from his girlfriend and mother
Original Note:
Consultation
-
Date/Time Consultation Requested: 06/19/23 1030
Date/Time Consultation Performed: 06/19/23 1230
Requesting Provider: Jeff Graff DO
Performing Provider: ROBERT Hayden, Tran Cano DO
Reason for Consultation: increase bilirubin
Medical History
Chief Complaint / HPI
Chief Complaint: jaundice/ LE swelling
History of Present Illness:
Pt is a 47 yo with hx congenital heart disease with pulm stenosis with ASD oversew and valvoplasty at age 7 months, ulcerative colitis since 2009 on chronic Mesalamine 1.2 gram BID, primary sclerosing cholangitis and prior biliary stricture.
Pt was followed by Dr. Lopez in 2021 then recently was seen by Dr. Ferguson since April with some loss in follow up since 2021. In reviewing records MRI in 2021 with dominant stricture inferior to cystic duct with cholangiocarcinoma not excluded.
Pt was due for follow up labs but did not complete after seen by Dr. Lopez. Labs on 05/07 and noted bili up to 20.4, AST 262, ALT 162, alk phos 758 and sent to ER for evaluation. Hepatitis panel otherwise neg with hep B immunity. Pt did also admit
to ETOH use 6-8 drinks per week and Tylenol 2 tablets daily but has since stopped all ETOH since last admission. Pt has had jaundice intermittently for some time and seems to be worse in winter now constant last few months. During admission In
April he completed MRI with noted severe PSC with innumerable short segment strictures throughout intrahepatic bile ducts without change. No new biliary obstruction or increased dilation. Also noted hepatic cirrhosis with mild hepatomegaly,
sever portal HTN and severe splenomegaly with increased hector hepatis, portacaval, retroperitoneal adenopathy. Also noted pancolitis with chronic UC portal colonopathy with degree of portal HTN and minimal ascites. He was recommended follow up labs
and Dr. Sethi which is scheduled in August. Pt was given several reminder calls for labs but did not completed til 06/09 with noted bili 29.3, AST 224, ALT 164, alk phos 736, creat 1.29, albumin 3.0 and INR 1.2. Pt was directed to return to ER.
He currently admits to constipation and regular stools and remains on mesalamine BID. Occasional GERD with PRN tums. He denies dysphagia, nausea, vomiting, abdominal pain,or blood in stools.
Past Medical History
Past Medical History: Other (ulcerative colitis, Primary sclerosing cholangitis, congenital heart disease with pulm stenosis, hearing loss, RBBB, iron deficiency anemia, hemorrhoids, colon polyps)
Past Surgical History: Cardiac (valvulplasty with ASD at age 7 months) and Other (rhinoplasty, cleft palate repair, liver biopsy 2009 normal )
Social History
Tobacco: Non-Smoker
Alcohol: Occasional (6-8 drinks per week [employer] drinks in April now stopped since evaluation)
Drug: None
Personal: Other (fianc�e )
Living: With Family
Employment: Employed
Family History
Family History: Other (uncle with colon CA 50's no family hx liver problems)
Allergies / Home Medications
Allergy/AdvReac Type Severity Reaction Status Date / Time
No Known Drug Allergies Allergy none Verified 06/19/23 08:14
Medication Instructions Recorded
Metamucil 2 cap PO BID Gastrointestinal Issue 05/10/23
mesalamine 1.2 gram tablet,delayed 1.2 g PO BID Gastrointestinal Issue 05/10/23
release
omega-3 700 mg-dha and epa 600 1 cap PO DAILY Supplement 05/10/23
mg-fish and krill oil 900 mg
capsule (MegaRed Advanced 4-in-1)
fexofenadine 180 mg tablet 180 mg PO DAILY Allergies #0 tabs 05/11/23
Review of Systems
-
History Source: Patient and Other (asher )
Constitutional: Reports Weight Gain (10 kg since 2021 no change since 04/2023 )
EENT: Reports No Symptoms
Respiratory: Reports No Symptoms
Abdomen/GI: Reports Constipated
: Reports Dark Urine (at times )
Musculoskeletal: Reports No Symptoms
Skin: Reports No Symptoms
Neurological: Reports No Symptoms
Endocrine: Reports No Symptoms
Hematologic/Lymphatic: Reports No Symptoms
Vital Signs
Temp Pulse Resp BP Pulse Ox
97.7 F 74 23 100/37 100
06/19/23 08:14 06/19/23 12:15 06/19/23 12:15 06/19/23 12:00 06/19/23 12:15
Physical Exam
Exam
General: Other (marked jaundice)
HEENT: Normocephalic, Anicteric and Moist Mucous Membranes
Respiratory: Clear
Cardiac: Regular Rhythm and Peripheral Edema
GI: Soft, Non Tender and Non Distended
Musculoskeletal: No Clubbing and No Cyanosis
Skin: Warm and Dry
Neuro: Awake, Alert and AO x 3
Psych: Calm
Results
WBC 6.8 10^3/uL (4.8-10.8) 06/19/23 09:08
Hgb 10.5 g/dL (13.0-18.0) L 06/19/23 09:08
Hct 31.4 % (39.0-52.0) L 06/19/23 09:08
MCV 90.5 fL (80.0-94.0) 06/19/23 09:08
Plt Count 83 10^3/uL (130-400) L 06/19/23 09:08
Absolute Neuts (auto) 5.5 10^3/uL (1.4-6.5) 06/19/23 09:08
PT 18.4 Sec (11.4-14.6) H 06/19/23 09:09
INR 1.55 06/19/23 09:09
Sodium 138 mmol/L (135-145) 06/19/23 09:08
Potassium 3.7 mmol/L (3.5-5.1) 06/19/23 09:08
Chloride 109 mmol/L (98-107) H 06/19/23 09:08
Carbon Dioxide 24 mmol/L (22-30) 06/19/23 09:08
BUN 24 mg/dl (9-20) H 06/19/23 09:08
Creatinine 1.3 mg/dL (0.7-1.3) 06/19/23 09:08
Calcium 8.7 mg/dl (8.4-10.2) 06/19/23 09:08
Total Bilirubin 28.6 mg/dl (0.2-1.3) H* 06/19/23 09:08
AST 270 U/L (17-59) H 06/19/23 09:08
ALT 181 U/L (0-50) H 06/19/23 09:08
Alkaline Phosphatase 786 U/L (38-126) H 06/19/23 09:08
Lipase 118 U/L (23-300) 06/19/23 09:08
Diagnostic Image Results:
05/10/23 �MR Abdomen W/o & W Contrast
1. � SEVERE PRIMARY SCLEROSING CHOLANGITIS with innumerable short segment strictures throughout the intrahepatic bile ducts which is not definitively changed.
2. � No MRI evidence for new biliary obstruction or interval increase in biliary dilatation compared with the prior exam performed 09/13/2021.
3. � Mild hepatic cirrhosis and mild hepatomegaly.
4. � SEVERE PORTAL HYPERTENSION with SEVERE SPLENOMEGALY.
5. � Moderate right upper quadrant hector hepatis, portacaval, and retroperitoneal lymphadenopathy which has mildly increased since 09/13/2021.
6. � Mild pancolitis which is likely CHRONIC ULCERATIVE COLITIS. Portal colopathy is an alternative diagnostic possibility given the degree of portal hypertension.
7. � Minimal ascites which appears new from 09/13/2021.
09/13/2021 MR abd with and without with MRCP:
Distention of the gallbladder. Diffuse intrahepatic biliary ductal dilation with beaded appearance on MRCP images, suggesting mild to moderate diffuse intrahepatic duct strictures.
Tapered to severe narrowing of the common bile duct, just inferior to the cystic duct insertion. No MR evidence for an obstructing mass lesion. Findings most likely represent changes from primary sclerosing cholangitis. Differential consideration of
cholangiocarcinoma, felt to be less likely with no focal mass lesion identified.
Heterogeneous T2-weighted signal of the liver, also demonstrating heterogeneity on diffusion-weighted images. Findings most likely represents cirrhosis. There is also splenomegaly.
No evidence for a focal hepatic mass lesion.�
Prior GI Procedures:�
EGD:�none
Colonoscopy:� 09/2021 [facility] �� - Hemorrhoids found on perianal exam.
�� � � � � � � � � � � - One 4 mm polyp in the transverse colon, removed with
�� � � � � � � � � � � a cold snare. Resected and retrieved.
�� � � � � � � � � � � - Nodular mucosa from 18 to 20 cm proximal to the
�� � � � � � � � � � � anus. Biopsied. Tattooed.
�� � � � � � � � � � � - The entire examined colon is normal.
�� � � � � � � � � � � - The examined portion of the ileum was normal.
�� � � � � � � � � � � Biopsied.
�� � � � � � � � � � � - Two biopsies were obtained in the rectum, in the
�� � � � � � � � � � � sigmoid colon, in the descending colon, in the
�� � � � � � � � � � � transverse colon, in the ascending colon and in the
�� � � � � � � � � � � cecum.
bx quiescent colitis
colonoscopy: 12/2019 [facility] � � - The entire examined colon is normal. Biopsied.
�� � � � � � � � � � � - Colitis was not seen. bx neg
liver biopsy 2008 no pathologic alternation, iron stain neg for hepatocellular iron deposition, tricrome stain confirms no fibrosis or cirrhosis
Assessment / Plan
-
Pt is a 47 yo with hx congenital heart disease with pulm stenosis with ASD oversew and valvoplasty at age 7 months, ulcerative colitis since 2009 on chronic Mesalamine 1.2 gram BID, primary sclerosing cholangitis and prior biliary stricture.
Pt was followed by Dr. Lopez in 2021 then recently was seen by Dr. Ferguson since April with some loss in follow up since 2021. In reviewing records MRI in 2021 with dominant stricture inferior to cystic duct with cholangiocarcinoma not excluded.
Pt was due for follow up labs but did not complete after seen by Dr. Lopez. Labs on 05/07/23 and noted bili up to 20.4, AST 262, ALT 162, alk phos 758 and sent to ER for evaluation. Hepatitis panel otherwise neg with hep B immunity. Pt did also
admit to ETOH use 6-8 drinks per week and Tylenol 2 tablets daily but has since stopped all ETOH since last admission. Pt has had jaundice intermittently for some time and seems to be worse in winter now constant last few months. During
admission In April he completed MRI with noted severe PSC with innumerable short segment strictures throughout intrahepatic bile ducts without change. No new biliary obstruction or increased dilation. Also noted hepatic cirrhosis with mild
hepatomegaly, sever portal HTN and severe splenomegaly with increased hector hepatis, portacaval, retroperitoneal adenopathy. Also noted pancolitis with chronic UC portal colonopathy with degree of portal HTN and minimal ascites. He was recommended
follow up lab and Dr. Sethi which is scheduled in August. Pt was given several reminder calls for labs but did not completed til 06/09 with noted bili 29.3, AST 224, ALT 164, alk phos 736, creat 1.29, albumin 3.0 and INR 1.2. Pt was directed to
return to ER.
�
- painless jaundice with continued rise in LFT's
-ulcerative colitis
-primary sclerosing cholangitis with innumerable short segment strictures
-concern for cirrhosis with decompensation
-LE edema
-ETOH abuse last 04/2023
-coagulopathy
-thrombocytopenia
other medical problems
-iron deficiency anemia
-splenomegaly
-congenital heart disease with surgical valvotomy and ASD oversew at 7 months old
-RBBB
-pulmonic stenosis
PLAN:
Etiology of LFT with concern underlying PSC with stricturing disease, cirrhosis with hx ETOH use vs other
await repeat US completed in ER
MRI reviewed from April admission with concern for stricturing disease
05/10/23 AFP 4.84 and Ca 19-9 -4
cont mesalamine with hx UC
trend LFT's, INR 1.55
Pt will need hepatology Evaluation as prior� evaluation with� concern for small ducts PCS vs overlap syndrome vs. PBC
ETOH abstinence, avoid hepatotoxic medications including Tylenol which pt has taken in past
eventual EGD for variceal screening
Current MELD 29 -- will review with Dr. Cano for plan
updated family at bedside
-
-
Thank you for consultation and allowing me to participate in the patient's care. Please call the regional manager GI physician during the after hours with any questions or concerns.
[2023-06-19 13:00] LABS: Direct Bilirubin 26.6 mg/dl (0.0-0.4)
[2023-06-19 13:03] LABS: GGTP 116 U/L (15-73)
--- NOTE | 2023-06-19 13:28 | EDRN ---
Pt will return from US to room #18. This RN gave paperwork and report on pt to Hilario GARCIA who is taking care of ER admission hold pts.
[2023-06-19 19:00] LABS: CEA 0.66 ng/ml
[2023-06-19] MEDS: ASACOL, DELZICOL DR 1200 MG PO (21:03)
[2023-06-20 05:33] VITALS: BMI 23.4
[2023-06-20 06:49] LABS: INR 1.49; PT 17.9 Sec (11.4-14.6)
[2023-06-20 06:50] LABS: APTT 47.4 Sec (23.4-35.0)
[2023-06-20 06:52] LABS: % Basophils 0.1 % (0-2); % Eosinophils 1.1 % (0-6); % Immature Granulocytes 0.4 % (0-0.5); % Lymphocytes 14.7 % (20.5-51.1); % Monocytes 6.6 % (1.7-9.3); % Neutrophils 77.1 % (42.2-75.2); Absolute Eosinophils 0.1 10^3/uL (0-0.7); Absolute Monocytes 0.5 10^3/uL (0.1-0.6); Absolute Neutrophils 5.4 10^3/uL (1.4-6.5); Hematocrit 30.7 % (39.0-52.0); Hemoglobin 10.6 g/dL (13.0-18.0); Mean Corp Hgb Conc. 34.5 g/dL (33.0-37.0); Mean Corpuscular Hgb 30.7 pg (27.0-31.0); Nucleated Red Blood Cells % 0 % (-); Platelet Count 90 10^3/uL (130-400); Red Blood Cell Count 3.45 10^6/uL (4.70-6.10); Red Cell Dist. Width 18.1 % (11.5-14.5)
[2023-06-20 07:25] VITALS: BP 107/65
[2023-06-20] MEDS: ASACOL, DELZICOL DR 1200 MG PO ×2 (07:35→21:05)
[2023-06-20 07:45] LABS: ALT (SGPT) 159 U/L (0-50); AST (SGOT) 220 U/L (17-59); Albumin 2.5 g/dl (3.5-5.0); Alkaline Phosphatase 787 U/L (38-126); Blood Urea Nitrogen 27 mg/dl (9-20); Calcium 8.7 mg/dl (8.4-10.2); Carbon Dioxide 20 mmol/L (22-30); Chloride 107 mmol/L (98-107); Estimated Creatinine Clearance 62 ml/min; Glucose 94 mg/dl (70-99); Magnesium 1.9 mg/dl (1.6-2.3); Potassium 4.1 mmol/L (3.5-5.1); Sodium 139 mmol/L (135-145); Total Bilirubin 23.4 mg/dl (0.2-1.3); Total Protein 6.4 g/dl (6.3-8.2); eGFR > 60.00
--- NOTE | 2023-06-20 13:24 | W.PN.HOSP.TC ---
Addendum entered and electronically signed by Juliano Swanson MD 06/21/23 12:48:
Thrombocytopenia and anemia. WBC normal.
Original Note:
Today's Communication/Plan
-
await transfer
Bili mild downtrend
Gi recs
Assessment / Plan
Assessment / Plan
#Painless jaundice with elevated bilirubin, alk phos and ALT/AST� likely 2/2 PSC vs. hx of alcohol abuse
#Primary sclerosing cholangitis with worsening of bilirubin 2/2 strictures
#History of liver biopsy
Check abdominal ultrasound to assess for ascites
Will defer� MRI of the abdomen by gastroenterology
May require EUS/ERCP
Tolerated diet
Dbili and GGT elevated
Elevated MELD score.
Avoid Tylenol
AFP was checked recently wnl.
May need to start Ursodiol
If with confusion check ammonia and may need to start lactulose
In setting of swelling-hold IVF. Tolerating po diet.
Immunoglobulin pending
IgG4 pending
JORGE LUIS, mitochondrial m2 antibody pending.
GI consultation requested
d/w with Dr. Neal initiated transfer to [facility]. Accepted by Dr. Marcelo Hargrove D (transplant eval) Transfer paperwork signed. CM aware.
#LE edema likely 2/2 ?liver cirrhosis concern for decompensation
probnp noted
Negative.
abdominal ultrasound negative for ascites
ECHO noted ejection fraction 60 to 65%. Normal diastolic function. Normal right ventricular size and function. Moderate pulmonary stenosis. Trace tricuspid regurgitation. Mildly elevated PASP 47 mmHg.
#Elevated Creatine
on room air
hold lasix for now
#Ulcerative colitis
Continue mesalamine
#Alcohol abuse
MSAS protocol
low likelihood of severe withdrawal
#Pancytopenia likely secondary alcohol abuse leading to suppression versus PSC
Trend hemoglobin and transfuse as needed
Platelets adequate no acute need for transfusion
#Hx of congenital Heart disease with pulmonary stenosis wtih ASD s/p repair
DVT ppx-scds and encourage ambulation
d/w with mother over the phone in details.
Anticipated Discharge: Today
Subjective/Interval History
-
Date of Service: June 20, 2023
No itching
tolerating diet
Objective Data
-
Labs:
Laboratory Results
06/20/23
06:23
WBC 7.0
Hgb 10.6 L
Hct 30.7 L
Plt Count 90 L
PT 17.9 H
INR 1.49
APTT 47.4 H
Sodium 139
Potassium 4.1
Chloride 107
Carbon Dioxide 20 L
BUN 27 H
Creatinine 1.4 H
Glucose 94
Calcium 8.7
Total Bilirubin 23.4 H*
AST 220 H
ALT 159 H
Alkaline Phosphatase 787 H
Vital Signs:
Vital Signs
Temp Pulse Resp BP Pulse Ox
98.0 F 80 18 107/65 99
06/20/23 07:25 06/20/23 07:25 06/20/23 07:25 06/20/23 07:25 06/20/23 07:25
I&O
06/19/23 06/20/23 06/21/23
06:59 06:59 06:59
Intake Total
Balance
--- NOTE | 2023-06-20 13:38 | W.PN.GI.CBS2 ---
Addendum entered and electronically signed by Tran Cano DO 06/20/23 17:25:
Patient seen and examined independently of ROBERT. I agree with her note with my additions below
Jacob is a 47-year-old male with congenital heart disease with pulmonary stenosis and ASD treated at 7 months, chronic torres ulcerative colitis in clinical remission on chronic 2 mesalamine pills daily, diagnosed with primary sclerosing cholangitis
around age 19 according to his mother who was sent for outpatient labs showing a bilirubin of 28, GGT 116, ALT 181, AST 270, alkaline phosphatase 76, albumin 2.6, creatinine 1.3.� He has no abdominal pain.� His weight has been stable at 140.� He
denies any GI bleeding, steatorrhea.� He has never had any GI bleeding other than small amounts of bright red blood per rectum.� He was unaware of having significant liver disease.� According to his girlfriend and mother he has had intermittent
jaundice over the past couple of years but over the past few months it has become persistent and significant.� He is otherwise asymptomatic.
Patient has never been under the care of a carbider but has been followed by Dr. Lopez for his ulcerative colitis.� Although he has been somewhat noncompliant with getting labs and it was suggested in 2018 he see hepatology by her nurse
practitioner. That was never done. He is not getting annual colonoscopies with his last colonoscopy in 2021.� He is unaware of having cirrhosis.� Not heavy drinker, just social.� Does not take any high doses of Tylenol or NSAIDs.� The only
medications he takes is Marlen, mesalamine. Denies any herbal supplements.� Uncle with colon cancer otherwise no family history of malignancy and no liver disease.
# Painless jaundice�-according to his mother known diagnosis of PSC at age 19.� Not under the care of hepatology.
--Based on imaging and labs highly concerning for cirrhosis with significant portal hypertension and varicosities on imaging.
--MELD 3.0 29 on 06/19/2023
-- I discussed this morning with Dr. Hargrove at [facility] who is a transplant carbider and he accepted him in transfer for an urgent transplant workup
-- Patient does have insurance and a good social situation with support from his girlfriend and mother
-Reviewed-echo from this morning showing moderate pulmonary stenosis -peak/mean gradients of 55/30, no pulmonic regurgitation. IVC is normal size, normal left ventricular size and function with an EF of 60 to 65% with normal diastolic function
-- MELD 3.0 is 29 today
-- Good nutrition, avoid infection, DVT prophylaxis, out of bed walk around the halls, stay as healthy as possible
-- Imaging placed on a disc
Original Note:
Today's Communication / Plan
-
Etiology of LFT with concern underlying PSC with stricturing disease, cirrhosis with hx ETOH use vs other
MELD 3.0 29 on admission and remains at 29 today ( MELD 05/10 was 23)
trend MELD labs daily
05/10/23 AFP 4.84 and Ca 19-9 -4, 06/18 19-9 pending, CEA 0.66
cont mesalamine with hx UC
ETOH abstinence, avoid hepatotoxic medications including Tylenol which pt has taken in past
eventual EGD for variceal screening
Tylenol <10, immunoglobulins, IGG4, JORGE LUIS, AMA, f - actin pending
reviewed with patient risks with current roller hockey and hold for now with liver disease -- fall, increased bleeding etc
Dr. Cano has reviewed with Dr. Hargrove at [facility] and accepted for transfer as worsening labs and MELD on 29 for liver transplant evaluation, films copied all questions answered. Advised for patient to call us for updates
Assessment / Plan
-
Pt is a 47 yo with hx congenital heart disease with pulm stenosis with ASD oversew and valvoplasty at age 7 months, ulcerative colitis since 2009 on chronic Mesalamine 1.2 gram BID, primary sclerosing cholangitis and prior biliary stricture.
Pt was followed by Dr. Lopez in 2021 then recently was seen by Dr. Ferguson since April with some loss in follow up since 2021. In reviewing records MRI in 2021 with dominant stricture inferior to cystic duct with cholangiocarcinoma not excluded.
Pt was due for follow up labs but did not complete after seen by Dr. Lopez. Labs on 05/07/23 and noted bili up to 20.4, AST 262, ALT 162, alk phos 758 and sent to ER for evaluation. Hepatitis panel otherwise neg with hep B immunity. Pt did also
admit to ETOH use 6-8 drinks per week and Tylenol 2 tablets daily but has since stopped all ETOH since last admission. Pt has had jaundice intermittently for some time and seems to be worse in winter now constant last few months. During
admission In April he completed MRI with noted severe PSC with innumerable short segment strictures throughout intrahepatic bile ducts without change. No new biliary obstruction or increased dilation. Also noted hepatic cirrhosis with mild
hepatomegaly, sever portal HTN and severe splenomegaly with increased hector hepatis, portacaval, retroperitoneal adenopathy. Also noted pancolitis with chronic UC portal colonopathy with degree of portal HTN and minimal ascites. He was recommended
follow up lab and Dr. Sethi which is scheduled in August. Pt was given several reminder calls for labs but did not completed til 06/09 with noted bili 29.3, AST 224, ALT 164, alk phos 736, creat 1.29, albumin 3.0 and INR 1.2. Pt was directed to
return to ER.
�
- painless jaundice with continued rise in LFT's
-ulcerative colitis
-primary sclerosing cholangitis with innumerable short segment strictures
-concern for cirrhosis with decompensation MELD 29 on admission up from 23 on 05/10
-LE edema
-ETOH abuse last 04/2023
-coagulopathy
-thrombocytopenia
-mild VEDA
other medical problems
-iron deficiency anemia
-splenomegaly
-congenital heart disease with surgical valvotomy and ASD oversew at 7 months old
-RBBB
-pulmonic stenosis
PLAN:
Etiology of LFT with concern underlying PSC with stricturing disease, cirrhosis with hx ETOH use vs other
MELD 3.0 29 on admission and remains at 29 today ( MELD 05/10 was 23)
trend MELD labs daily
05/10/23 AFP 4.84 and Ca 19-9 -4, 06/18 19-9 pending, CEA 0.66
cont mesalamine with hx UC
ETOH abstinence, avoid hepatotoxic medications including Tylenol which pt has taken in past
eventual EGD for variceal screening
Tylenol <10, immunoglobulins, IGG4, JORGE LUIS, AMA, f - actin pending
reviewed with patient risks with current roller hockey and hold for now with liver disease -- fall, increased bleeding etc
Dr. Cano has reviewed with Dr. Hargrove at [facility] and accepted for transfer as worsening labs and MELD on 29 for liver transplant evaluation, films copied all questions answered. Advised for patient to call us for updates
Subjective
Subjective
Date of Service: June 20, 2023
on regular diet, no stool feeling OK
Objective
Data Reviewed
Laboratory Data:
Laboratory Results
06/20/23 06:23
06/20/23 06:23
Laboratory Results
PT 17.9 Sec (11.4-14.6) H 06/20/23 06:23
INR 1.49 06/20/23 06:23
APTT 47.4 Sec (23.4-35.0) H 06/20/23 06:23
Magnesium 1.9 mg/dl (1.6-2.3) 06/20/23 06:23
Total Bilirubin 23.4 mg/dl (0.2-1.3) H* 06/20/23 06:23
AST 220 U/L (17-59) H 06/20/23 06:23
ALT 159 U/L (0-50) H 06/20/23 06:23
Alkaline Phosphatase 787 U/L (38-126) H 06/20/23 06:23
Lipase 118 U/L (23-300) 06/19/23 09:08
Vital Signs and I&O:
Vital Signs
Temp Pulse Resp BP Pulse Ox
98.0 F 80 18 107/65 99
06/20/23 07:25 06/20/23 07:25 06/20/23 07:25 06/20/23 07:25 06/20/23 07:25
I&O
06/19/23 06/20/23 06/21/23
06:59 06:59 06:59
Intake Total
Balance
Physical Exam
Physical Exam
HEENT: Other (marked jaundice )
Cardiology: Normal Sinus Rhythm
Pulmonary: Clear
GI: Soft, Distended (mild) and Non Tender
Extremities: Edema
Neuro: Non Focal
[2023-06-20 15:26] VITALS: BP 110/63
[2023-06-20 23:18] VITALS: BP 105/53
[2023-06-21 01:08] LABS: IgA 343 mg/dl (70-400); IgG 1587 mg/dl (700-1600); IgM 121 mg/dl (40-230)
--- NOTE | 2023-06-21 04:37 | PTCARENOTE ---
@1650; Pt transferred to [facility] ,via stretcher with IV intact, as per [facility] JOSE Gomez requested. Pt declines pain at the present and personal belongings with pt on stretcher.
--- NOTE | 2023-06-21 08:55 | W.DCSUMMARY ---
Discharge Summary
Discharge Data
Date of Admission: 06/19/23
Date of Discharge: 06/21/23
-
Pending Results: No
Hospital Course
47-year-old male past medical history of jaundice, primary sclerosing cholangitis, thrombocytopenia, anemia ulcerative colitis who is presenting with abnormal labs. Patient was found to have a severely elevated T. bili of 48 on admission. Direct
bili was high. Sodium MELD score was significantly elevated. Patient also with lower extremity edema. Echocardiogram was performed. Patient with elevated creatinine and Lasix was held. ECHO noted ejection fraction 60 to 65%.� Normal diastolic
function.� Normal right ventricular size and function.� Moderate pulmonary stenosis.� Trace tricuspid regurgitation.� Mildly elevated PASP 47 mmHg. Patient case was discussed with gastroenterology. Patient without any pruritus. Patient mentation
within normal limits. Gastroenterology discussed case with transplant at [place] and patient will be transfered to [facility] under Dr. Keith Wasserman.
Discharge Plan
-
Patient Disposition: Acute Care Hospital
Discharge Orders:
Discharge Patient (As Directed); Ordered 06/21/23
Ordered By: Suellen Abrams
Discharge Date and Time
Discharge Date/Time: 06/21/23 04:30
--- NOTE | 2023-06-21 09:51 | PN.CDI ---
CDI
- -
CDI:
Physician Documentation Request
Admit Date: 06/19/23 12:16
Dear Doctor Kiki,
Hospitalist progress notes states 'Pancytopenia likely secondary alcohol abuse leading to suppression versus PSC'
Laboratory Tests
06/19/23 06/20/23
09:08 06:23
WBC 6.8 7.0
RBC 3.47 L 3.45 L
Plt Count 83 L 90 L
Could you please verify this diagnosis is still accurate and reflective of the patient's condition to ensure quality of the medical record:
____ - Pancytopenia was present and is clinical diagnosis based on
____ - Pancytopenia was ruled out
____ - Other
Use of terms such as suspected, likely, concern for, or probable (associated with a specific diagnosis that is being evaluated, monitored, or treated as if it exists) are acceptable and can be coded in the inpatient setting, when documented at the
time of discharge.
Thank you,
Annita Pierre RN, BSN
CDI Specialist
tiger text
Please use your independent medical judgment in providing your response.
[2023-06-22 00:11] LABS: ANA, IgG Reflex to HEp-2 Detected (None Detected)
[2023-06-22 01:19] LABS: F-Actin Antibody IgG 67 Units (0-19); Mitochondrial M2 Ab, IgG 8.7 Units (0.0-24.9)
[2023-06-22 04:45] LABS: CA 19-9 3 U/mL (<=35)
[2023-06-22 10:52] LABS: IgG Subclass 4 34 mg/dL (1-123)
[2023-06-23 21:29] LABS: ANA, HEp-2, IgG Detected (<1:80)
[2023-06-24 15:02] LABS: ANA Pattern Homogeneous; Cytoplasmic Pattern Speckled
== END 2023-06-21 04:30 | disposition short-term general hospital (02) | DRG 445 ==
LOC: 3 WEST ACU 12:16
PROVIDERS: ADMITTING PHYSICIAN Hospitalist; CONSULT PHYSICIAN Internal Medicine; EMERGENCY PHYSICIAN Student in an Organized Health Care Education/Training Program; FAMILY PHYSICIAN Physician Assistant Medical
DX: K83.01 Primary sclerosing cholangitis (principal); D61.818 Other pancytopenia; K51.90 Ulcerative colitis, unspecified, without complications; K76.6 Portal hypertension; D68.9 Coagulation defect, unspecified; N17.9 Acute kidney failure, unspecified; R79.89 Other specified abnormal findings of blood chemistry; R60.0 Localized edema; F10.10 Alcohol abuse, uncomplicated; D50.9 Iron deficiency anemia, unspecified; I45.10 Unspecified right bundle-branch block; H91.90 Unspecified hearing loss, unspecified ear; K64.9 Unspecified hemorrhoids; D64.9 Anemia, unspecified; K74.60 Unspecified cirrhosis of liver; R16.2 Hepatomegaly with splenomegaly, not elsewhere classified; R59.0 Localized enlarged lymph nodes; K21.9 Gastro-esophageal reflux disease without esophagitis; K59.00 Constipation, unspecified; Z87.74 Personal history of (corrected) congenital malformations of heart and circulatory system; Z87.730 Personal history of (corrected) cleft lip and palate; Z86.010 Personal history of colon polyps; Z80.0 Family history of malignant neoplasm of digestive organs; Z91.199 Patient's noncompliance with other medical treatment and regimen due to unspecified reason
CPT/HCPCS: 76705; 80053; 82248; 82378; 82784; 82787; 82977; 83690; 83735; 83880; 85025; 85610; 85730; 86015; 86038; 86039; 86256; 86301; 86381; 93005; 93306; 93970; 99285

== ENCOUNTER 2023-07-18 08:12 | Emergency (ER) | payer OTHER, SELFPAY ==
[2023-07-18] VITALS (8 sets, daily range): BP systolic 69–120; BP diastolic 51–73
[2023-07-18 08:48] LABS: % Basophils 0.1 % (0-2); % Immature Granulocytes 1.1 % (0-0.5); % Monocytes 6.6 % (1.7-9.3); % Neutrophils 78.2 % (42.2-75.2); Absolute Eosinophils 0.1 10^3/uL (0-0.7); Absolute Immature Granulocytes 0.1 10^3/uL (0-0.05); Absolute Monocytes 0.5 10^3/uL (0.1-0.6); Absolute Neutrophils 6.3 10^3/uL (1.4-6.5); Hematocrit 29.1 % (39.0-52.0); Hemoglobin 9.6 g/dL (13.0-18.0); Mean Corpuscular Hgb 31.6 pg (27.0-31.0); Mean Corpuscular Volume 95.7 fL (80.0-94.0); Nucleated Red Blood Cells % 0 % (-); Platelet Count 84 10^3/uL (130-400); Red Blood Cell Count 3.04 10^6/uL (4.70-6.10); Red Cell Dist. Width 18.6 % (11.5-14.5)
--- NOTE | 2023-07-18 09:14 | ED.GENMED ---
History of Present Illness
General
Chief Complaint: Abdominal Pain
Source: patient
Time Seen by Provider: 07/18/23 08:43
Travel History
Have you had any contact with someone who has COVID-19?: No
Do you have any symptoms of coronavirus? Fever > 100 degrees, chills, cough, shortness of breath, sore throat, loss of taste or smell, muscle aches, or headache?: No
History of Present Illness
History of Present Illness:
47-year-old male presents to the emergency room for evaluation of increased abdominal distention, abdominal pain and back pain. Patient was recently diagnosed with cirrhosis secondary to primary sclerosing cholangitis. Patient was seen here last
month for jaundice. He was found to have significant liver disease and was transferred to [place] for evaluation of a liver transplant. Patient had some abdominal distention at that time but an ultrasound performed at [place] did not show
adequate fluid for paracentesis. He was told if he feels like his abdominal distention is getting worse that he should come here and have an ultrasound. Patient denies any fever, chills, nausea, vomiting, constipation. He is not confused. He has
been taking Tylenol for pain.
Past History
Past History
ED Past Medical History: Other (Ulcerative colitis, jaundice/primary sclerosing cholangitis)
ED Past Surgical History: Other (Rhinoplasty)
Social History
Tobacco: Non-smoker
Alcohol: Daily
Drug: None
Personal: Single
Living: alone
Phy Exam
Physical Exam
Physical Exam:
General: Awake, Alert, Oriented X3. No acute distress, very thin
Vitals: unremarkable
Head: Atraumatic
Eyes: Pupils equal, EOMI, positive scleral icterus
Throat: Airway intact, no exudates
Neck: Trachea midline
Lungs: Clear and equal b/l
Heart: Regular rate, no murmurs
Abd: Soft, distended, firm, nontender, No pulsatile mass
Neuro: Nonfocal
Skin: Warm, dry, grossly icteric
Extremities: pulses equal b/l, no edema
Course
Orders/Labs/Results
Orders:
Orders
07/18/23 08:37
Complete Blood Count/With Diff Urgent
Comprehensive Metabolic Panel Urgent
Lipase Urgent
07/18/23 09:12
US Abdomen Limited Urgent
Comment:
Reason For Exam: eval for ascities
07/18/23 09:17
Prothrombin Time Urgent
07/18/23 10:34
Consult Interventional Radiology [IRAD CONSULT] Urgent
Consulting Provider: Darnell Chen
Was physician already notified: Yes
Reason for consult: ascities/paracentesis
07/18/23 10:47
IRAD Cytology Routine
Date Specimen was Collected: 07/18/23
Time Specimen was Collected: 11:40
Source: Peritoneal Fluid
Clinical Impression: cirrhosis
History of Malignancy: none
History of Radiation / Chemotherapy: none
Submitting Physician: Kecia PIERRE
07/18/23 11:47
Body Fluid Albumin Urgent
Fluid Source: Peritoneal (Ascites)
Date Specimen was Collected: 07/18/23
Time Specimen was Collected: 11:40
Body Fluid Amylase Urgent
Fluid Source: Peritoneal (Ascites)
Date Specimen was Collected: 07/18/23
Time Specimen was Collected: 11:40
Body Fluid Cell Count Urgent
What is the Body Fluid: peritoneal
Date Specimen was Collected: 07/18/23
Time Specimen was Collected: 11:40
Body Fluid Glucose Urgent
Fluid Source: Peritoneal (Ascites)
Date Specimen was Collected: 07/18/23
Time Specimen was Collected: 11:40
Body Fluid LDH Urgent
Fluid Source: Peritoneal (Ascites)
Date Specimen was Collected: 07/18/23
Time Specimen was Collected: 11:40
Fluid Culture with Gram Stain Urgent
TRE Source: Peritoneal Fluid
Specimen Description:
Date Specimen was Collected: 07/18/23
Time Specimen was Collected: 11:40
07/18/23 13:04
Albumin Human 5% 250 ml [Albumin 5%] 12.5 grams in 250 ml IV NOW
Abnormal Lab Results
07/18/23 07/18/23
08:37 09:17
RBC 3.04 L 10^6/uL
(4.70-6.10)
Hgb 9.6 L g/dL
(13.0-18.0)
Hct 29.1 L %
(39.0-52.0)
MCV 95.7 H fL
(80.0-94.0)
MCH 31.6 H pg
(27.0-31.0)
RDW 18.6 H %
(11.5-14.5)
Plt Count 84 L 10^3/uL
(130-400)
MPV 14.0 H fL
(7.4-10.4)
Abs Immat Gran (auto) 0.1 H 10^3/uL
(0-0.05)
Absolute Lymphs (auto) 1.0 L 10^3/uL
(1.2-3.4)
Immature Gran % 1.1 H %
(0-0.5)
Neutrophils % 78.2 H %
(42.2-75.2)
Lymphocytes % 13.0 L %
(20.5-51.1)
PT 26.7 H Sec
(11.4-14.6)
Chloride 115 H mmol/L
(98-107)
Carbon Dioxide 15 L mmol/L
(22-30)
BUN 45 H mg/dl
(9-20)
Creatinine 2.1 H mg/dL
(0.7-1.3)
Total Bilirubin 30.1 H* mg/dl
(0.2-1.3)
AST 294 H U/L
(17-59)
ALT 170 H U/L
(0-50)
Alkaline Phosphatase 729 H U/L
(38-126)
Albumin 3.0 L g/dl
(3.5-5.0)
Lipase 302 H U/L
(23-300)
07/18/23 08:37
07/18/23 08:37
Vital Signs
Initial and Last Documented VS:
Initial Vital Signs
Temp Pulse Resp BP Pulse Ox
97.6 F 78 20 120/73 100
07/18/23 08:28 07/18/23 08:28 07/18/23 08:28 07/18/23 08:28 07/18/23 08:28
Last Documented Vital Signs
Temp Pulse Resp BP Pulse Ox
97.6 F 71 15 109/51 100
07/18/23 11:13 07/18/23 12:36 07/18/23 12:36 07/18/23 12:36 07/18/23 12:20
MDM/Problems Addressed
Differential Diagnosis Includes:
Tense ascites, spontaneous bacterial peritonitis, other intra-abdominal process
MDM/Problems Addressed:
Patient's labs show impressively elevated bilirubin. His BUN is 45 creatinine 2.1. He was just discharged from [place]. Ultrasound of the abdomen shows significant abdominal ascites. Paracentesis was performed. Fluid sent for labs and
cytology. Cell count here is not consistent with SBP. Patient feels better. Despite his jaundice I believe he is stable for discharge as he has a chronic progressive disease which will require liver transplantation. He is stable for discharge
from here and follow-up with his document imaging manager at [place].
*Pulse Oximetry
Patient hypoxic: no
*EKG
Rate: EKG- N/A
*Harbormaster Interpretation
Rate: Harbormaster- N/A
*Critical Care Note
Total Time (30-74mins, 75-104mins- exclusive of procedures): Not Applicable
ED Attending Note
-
Portions of this chart may have been created with voice recognition software.� Occasional wrong word or��sound alike� substitutions may have occurred due to the inherent limitations of voice recognition software.
Discharge Plan
Departure
Condition: Good
Discharge Problem:
Cirrhosis, Status post abdominal paracentesis
Instructions: Abdominal Paracentesis (DC)
Prescriptions:
No Action
mesalamine 1.2 gram Tablet,Delayed Release (Dr/Ec)
1.2 g PO BID
psyllium husk [Metamucil] 0.4 gram Capsule
0.8 g PO BID Qty: 0
MegaRed Advanced 4-in-1 700 mg-600 mg- 900 mg Capsule
1 cap PO DAILY
fexofenadine 180 mg Tablet
180 mg PO DAILY Qty: 0 0RF
acetaminophen [Tylenol Extra Strength] 500 mg Tablet
500 mg PO QIDPRN PRN (Reason: mild pain)
Referrals:
Deidre Harmon PA-C [Family Provider] -
Activity Restrictions/Additional Instructions:
Please share your lab results with your document imaging manager at [facility]. Return if you develop a fever.
Interventions
Interventions:
*Risk Screen - Suicide Last Done: 07/18/23 09:21
*Neglect/Abuse Screening Last Done: 07/18/23 09:21
ED- Fall Risk Assessment Last Done: 07/18/23 09:30
*ED COVID-19 Vaccine History Last Done: 07/18/23 08:28
WG-Htklqz-Nqspvggdow Assessment Last Done: 07/18/23 09:21
Discharge Date and Time
Print Language: MICRONESIAN
[2023-07-18 09:56] LABS: INR 2.42; PT 26.7 Sec (11.4-14.6)
[2023-07-18 10:12] LABS: ALT (SGPT) 170 U/L (0-50); AST (SGOT) 294 U/L (17-59); Alkaline Phosphatase 729 U/L (38-126); Blood Urea Nitrogen 45 mg/dl (9-20); Calcium 9.4 mg/dl (8.4-10.2); Carbon Dioxide 15 mmol/L (22-30); Chloride 115 mmol/L (98-107); Glucose 92 mg/dl (70-99); Lipase 302 U/L (23-300); Potassium 3.7 mmol/L (3.5-5.1); Sodium 139 mmol/L (135-145); Total Bilirubin 30.1 mg/dl (0.2-1.3); eGFR 38.59
[2023-07-18 12:21] LABS: Body Fluid Mononuclear 55.7 %; Body Fluid Polymorphonuclear 44.3 %; Body Fluid WBC 420 /CUMM
[2023-07-18 12:36] LABS: Body Fluid Albumin 1.2 g/dl; Body Fluid Amylase 53 U/L; Body Fluid Glucose 83 mg/dl; Body Fluid LDH < 90 U/L
[2023-07-18 13:13] LABS: Body Fluid Second Tech BP
[2023-07-18] MEDS: FLEXBUMIN 100 IV (13:58)
== END 2023-07-18 16:21 | disposition home or self-care (01) ==
LOC: EMR 08:12
PROVIDERS: CONSULT PHYSICIAN Radiology Diagnostic Radiology; EMERGENCY PHYSICIAN Emergency Medicine; FAMILY PHYSICIAN Physician Assistant Medical
DX: K74.60 Unspecified cirrhosis of liver (principal); R18.8 Other ascites; K83.01 Primary sclerosing cholangitis
CPT/HCPCS: 99285; 96365; 96366; 88305; 49083; 76705; 80053; 82042; 82150; 82945; 83615; 83690; 85025; 85610; 87015; 87070; 87205; 88112; 89051; P9045; P9047

== ENCOUNTER → 2023-09-27 13:11 | Outpatient (REF) | payer OTHER, SELFPAY ==
[2023-09-27 17:04] LABS: Potassium 6.2 mmol/L (3.5-5.1)
== END ==
LOC: OLAB 13:11
PROVIDERS: ATTENDING PHYSICIAN Specialist
DX: N18.6 End stage renal disease (principal)
CPT/HCPCS: 84132

== ENCOUNTER → 2024-01-16 13:28 | Outpatient (REF) | payer OTHER, SELFPAY | LOC: HWRCS 13:28 | PROVIDERS: ATTENDING PHYSICIAN Surgery; FAMILY PHYSICIAN Family Medicine | DX: Z01.818 Encounter for other preprocedural examination (principal) | CPT/HCPCS: 93306 ==

== ENCOUNTER → 2024-02-12 12:47 | Outpatient (REF) | payer OTHER, SELFPAY | LOC: PET 12:47 | PROVIDERS: ATTENDING PHYSICIAN Surgery | DX: Z01.818 Encounter for other preprocedural examination (principal) | CPT/HCPCS: 78431; A9555; J2785 ==

== ENCOUNTER → 2024-09-23 12:19 | Outpatient (REF) | payer OTHER, SELFPAY | LOC: HWRAD 12:19 | PROVIDERS: ATTENDING PHYSICIAN Physician Assistant Medical | DX: M25.571 Pain in right ankle and joints of right foot (principal) | CPT/HCPCS: 73610 ==

== ENCOUNTER → 2024-09-25 12:32 | Outpatient (REF) | payer OTHER, SELFPAY | LOC: HWRAD 12:32 | PROVIDERS: ATTENDING PHYSICIAN Surgery; FAMILY PHYSICIAN Physician Assistant Medical | DX: Z01.818 Encounter for other preprocedural examination (principal) | CPT/HCPCS: 71048; 93005 ==

== ENCOUNTER 2024-09-30 06:31 | Day surgery (SDC) | payer OTHER, SELFPAY | END 2024-09-30 14:28 | disposition home or self-care (01) | LOC: GI 06:31 | PROVIDERS: ATTENDING PHYSICIAN Internal Medicine | DX: Z12.11 Encounter for screening for malignant neoplasm of colon (principal); K51.90 Ulcerative colitis, unspecified, without complications; Z94.4 Liver transplant status | CPT/HCPCS: 45380; 88305 ==